=== PATIENT | male | born 1950 | race African-American/Black ===

== ENCOUNTER 2017-05-04 10:35 | Observation (INO) | payer MEDICARE ==
[2017-05-04 11:25] LABS: #Eosinphils 0.3 thou/uL (0.0-0.7); #Lymphocytes 0.5 thou/uL (1.20-3.40); #Monocytes 0.5 thou/uL (0.11-0.59); #Neutrophils 2.7 thou/uL (1.40-6.50); %Basophils 0.6 % (0.0-1.0); %Eosinophils 7.2 % (0.0-10.0); %Lymphocytes 13.2 % (21.0-51.0); %Monocytes 12.4 % (0.0-10.0); Hematocrit 34.7 % (42.0-52.0); Mean Platelet Volume 9.2 fL (7.4-10.4); Red Blood Cell (RBC) Count 3.92 mill/uL (4.70-6.10)
[2017-05-04 11:46] LABS: ALT (SGPT) 22 U/L (8-55); AST (SGOT) 33 U/L (5-34); Alkaline Phosphatase 126 U/L (40-150); Anion Gap 11 mmol/L (10-20); BUN (Urea Nitrogen) 59 mg/dL (8.4-25.7); Bilirubin, Total 0.9 mg/dL (0.2-1.2); CK (CPK) 299 U/L (30-200); Calc. Creatinine Clearance 0 mL/min (70-130); Carbon Dioxide 33 mmol/L (23-31); Chloride 97 mmol/L (98-107); Estimated GFR-MDRD 24; Globulin 4.8 g/dL (2.4-3.5); Lipase 37 U/L (8-78); Protein, Total 8.2 g/dL (5.8-8.1)
[2017-05-04 11:50] LABS: Troponin I 0.034 ng/mL (< 0.028)
[2017-05-04 11:58] LABS: Mode NC; Oxyhemoglobin 94.8 % (94.0-97.0); Sodium 141 mmol/L (135-148); Vent NO
--- NOTE | 2017-05-04 12:18 | RAD ---
CHEST 1 VIEW: Date: 05/04/17 COMPARISON: 04/09/17 and 04/11/17. HISTORY: Dyspnea. FINDINGS: Left-sided transvenous defibrillator is unchanged. There is atherosclerosis of the aorta. Heart is e nlarged. Pulmonary vessels are within normal limits. Lungs are hyperinflated. Chronic changes in the right lung base. Stable blunting of the right costophrenic angle. There is adequate aeration of the upper lungs. No pneumothorax or osseous abnormalities. IMPRESSION: No significant interval change. POS: [facility]
[2017-05-04 14:56] LABS: Troponin I 0.042 ng/mL (< 0.028)
[2017-05-04] MEDS ORDERED: HYDROcodone/Acetaminophen 5/325 mg Tablet PO PRN (15:04)
[2017-05-04] MEDS ORDERED: Eucerin (Mineral Oil/Petrolatum,White) 30 gm Jar TOP PRN (15:04)
[2017-05-04] MEDS ORDERED: Zolpidem Tartrate 5 MG TAB PO PRN (15:04)
[2017-05-04] MEDS ORDERED: Nitroglycerin 0.4 MG TAB (25 Tab Bottle) SL PRN (15:04)
[2017-05-04] MEDS ORDERED: Senokot 8.6 MG TAB PO PRN (15:04)
[2017-05-04] MEDS ORDERED: Ondansetron ODT 4 MG TAB PO PRN (15:04)
[2017-05-04] MEDS ORDERED: Loratadine 10 MG TAB PO PRN (15:04)
[2017-05-04] MEDS ORDERED: Loperamide HCl 2 MG CAP PO PRN (15:04)
[2017-05-04] MEDS ORDERED: Artificial Tears 18 DROP/0.9 ML EA EYE PRN (15:04)
[2017-05-04] MEDS ORDERED: Acetaminophen 325 MG TAB PO PRN (15:04)
[2017-05-04] MEDS ORDERED: Mag-Al 1200 mg/1200 mg/30 ML UDCUP PO PRN (15:04)
[2017-05-04] MEDS ORDERED: Ondansetron HCl/PF 4 MG/2 ML Vial IVP PRN (15:04)
[2017-05-04] MEDS ORDERED: Diabetic Tussin 200 MG/10 ML UDCUP PO PRN (15:04)
[2017-05-04] MEDS ORDERED: Milk Of Magnesia 30 ML UDCUP PO PRN (15:04)
[2017-05-04] MEDS ORDERED: Sodium Chloride 0.65% Nasal 44 ML BOT EA NARE PRN (15:04)
[2017-05-04 15:16] VITALS: BMI 26.6
--- NOTE | 2017-05-04 15:24 | HP ---
PRIMARY CARE PHYSICIAN: Dr. Cecilia Nguyen. REASON FOR ADMISSION: Dyspnea. HISTORY OF PRESENT ILLNESS: A 66-year-old -[place] male, who has cardiomyopathy with EF 20% -25%. Recently, he had upgradation of AICD, and he was admitted for generator change. He also has underlying chronic kidney failure, stage 4. The patient came to the emergency room because Dr. Nguyen sent him to ER. Today, he had regular vis it with Dr. Nguyen. The patient has chronic shortness of breath, but he feels a little bit more melody n usual shortness of breath. He reports that after walking 25-30 steps he gets out of breath and he has to rest to move forward. He also has chronic bilateral lower extremity edema. He denies any c hest pain. He denies any palpitations, dizziness, or syncope. He does have chronic orthopnea, but he denies any PND. He denies any cough. He denies any fever or chills. Today, he is evaluated in the emergency room. His chest x-ray is pretty much stable. His renal fun ction has gotten worse from previous. His BNP is chronically elevated and his troponin is also spring maker nically elevated. At this point, we are admitting this patient in the hospital for treatment and ev aluation. REVIEW OF SYSTEMS: The following complete review of systems was negative, unless otherwise mentione d in the HPI or below: Constitutional: Weight loss or gain, ability to conduct usual activities. Skin: Rash, itching. Eyes: Double vision, pain. ENT/Mouth: Nose bleeding, neck stiffness, pain, tenderness. Cardiovascular: Palpitations, dyspnea on exertion, orthopnea. Respiratory: Shortnes s of breath, wheezing, cough, hemoptysis, fever or night sweats. Gastrointestinal: Poor appetite, abdominal pain, heartburn, nausea, vomiting, constipation, or diarrhea. Genitourinary: Urgency, fr equency, dysuria, nocturia. Musculoskeletal: Pain, swelling. Neurologic/Psychiatric: Anxiety, de pression. Allergy/Immunologic: Skin rash, bleeding tendency. Please see my HPI for pertinent posi tives and negatives. All other review of system reviewed and negative except as mentioned in the HP I. PAST MEDICAL HISTORY: Hypertension; chronic systolic heart failure with ejection fraction based on echocardiography in 11/2016 of 25%-30%; chronic kidney disease, stage 4; chronic respiratory failure , on home oxygen therapy; history of infrarenal abdominal aortic aneurysm; dyslipidemia. PAST SURGICAL HISTORY: AICD placement and subsequently generator replaced. The patient also had I and D required for abscess on the neck, hernia repair x2. PAST PSYCHIATRIC HISTORY: Reviewed and negative. ALLERGIES: The patient is not tolerating any FISH-CONTAINING PRODUCTS WELL SEAFOOD. FAMILY HISTORY: Father from heart condition. He also had chronic kidney disease and hypertens ion. Heart disease runs among other several family members. SOCIAL HISTORY: Patient is a former smoker. He quit smoking more than 20 years ago. He used to sm katharina about 1 pack per day. He denies any alcohol or other illicit drug abuse. Currently lives at [facility] with his son. 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 CURRENT HOME MEDICATIONS: Calcitriol 0.5 mcg p.o. daily, Coreg 12.5 mg p.o. b.i.d., Lasix 40 mg p.o . daily, DuoNeb p.r.n., Imdur 30 mg p.o. daily, omeprazole 40 mg p.o. daily. EMERGENCY ROOM COURSE: Reviewed. PHYSICAL EXAMINATION: VITAL SIGNS: Currently, blood pressure 125/80, pulse 79, respiratory rate 18, temperature 98.2, sat uration 97% on 2 liter oxygen, weight 83.4 kilograms. GENERAL: Patient is currently alert, awake, chronically ill, no obvious acute distress. HEENT: Head: Normocephalic, atraumatic. Eyes: Pupils round, reactive to light. Extraocular musc les intact. ENT: Oropharynx within normal limits. Moist mucous membranes. No oral lesions. No p haryngeal erythema, no exudate. NECK: Elevated JVD, no thyromegaly, no carotid bruit. Range of motion is normal. LUNGS: Clear to auscultation without any significant rales or rhonchi or wheeze. CARDIOVASCULAR: S1, S2 regular. Unable to elicit any murmur. CHEST WALL: AICD in place without any tenderness. ABDOMEN: Obesity present. Bowel sounds present, nontender, nondistended. No organomegaly, no mass , no suprapubic tenderness. BACK: Unremarkable, no CVA tenderness. EXTREMITIES: Upper extremity, passive movement of all joints are normal. Lower extremity, patient does have bilateral chronic skin changes with chronic edema. Good distal pulsation. NEUROLOGIC: Nonfocal examination. SKIN: No skin rash. HEMATOLOGICAL SYSTEM: No lymphadenopathy. PSYCHIATRIC: Normal affect. SIGNIFICANT LABS: EKG, based on my review, normal sinus rhythm, nonspecific ST-T changes, low volta ge QRS complex. Chest x-ray, no acute cardiopulmonary process. CBC: WBC 4.0, hemoglobin 11.0, rachelle telets 90. ABG: pH 7.34, CO2 of 59.5, bicarb 31.7, O2 92.6, saturation 97.3. BMP: Sodium 137, po tassium 3.9, chloride 97, carbon dioxide 33, BUN 59, creatinine 3.16, glucose 85, calcium 9.0. LFT: AST 33, ALT 22, alkaline phosphatase 126, albumin 3.4, lipase 37, CK 299, CK-MB 5.1, troponin I 0. 034. BNP 7079.8, lipase 37. ASSESSMENT AND PLAN: 1. Dyspnea, multifactorial etiology. The patient does have underlying chronic systolic heart failu re as well as diastolic heart failure with ejection fraction 25%-30%. He also has underlying renal insufficiency and anemia. He also has physical deconditioning, all contributing to his increasing d yspnea. 2. Acute on chronic systolic and diastolic congestive heart failure exacerbation. At this point, w e will keep this patient under observation status and we will try Lasix 60 mg IV b.i.d. and Zaroxoly n 5 mg p.o. daily. We will see his response to diuretic therapy. He has advanced renal insufficien cy and that is why we will monitor renal function, input-output chart, and daily weight. If this pa tient does not respond with a high dose of Lasix therapy, then this patient will need eventually ashlie lysis. This patient is also pretty much adamant about going for dialysis route. At this point, the patient is up to his baseline, but will try to give him more Lasix to make him more euvolemic. 3. Hypertension. Patient is on Coreg. We will continue Coreg 3.125 mg p.o. b.i.d. At this point, patient is not on CLEO inhibitor and ARB in view of systolic heart failure, because of advanced yoni l failure. 4. Chronic kidney disease, stage 4. The patient's creatinine is slightly increased from the previo us, maybe cardiorenal syndrome. We will continue with IV Lasix and we will repeat renal function te st. I explained to patient and family member that with diuretic therapy it is expected that his cre atinine may go up. Patient is following Dr. Epps as an outpatient basis and the patient and family osvaldo osorio does not want to go for any future dialysis as well. 5. Chronic respiratory failure, on home oxygen therapy. We will [facility] oxygen [facility]. 6. Gastroesophageal reflux disease. We will continue Protonix 40 mg p.o. daily. 7. Chronic obstructive pulmonary disease. We will continue DuoNeb therapy q.6 hourly p.r.n. 8. Anemia of chronic disease and renal disease. We will continue ferrous sulfate 325 mg p.o. daily , Nephro-Ethan one tablet p.o. daily. 9. Thrombocytopenia. We will avoid any heparin products because of low platelet count. 10. Leukopenia. We will continue with folic acid and vitamin B12 therapy. We will check B12 and f olate level to rule out any vitamin deficiency. 11. Deep venous thrombosis prophylaxis, sequential compression device boots. 12. Gastrointestinal prophylaxis, Protonix 40 mg p.o. daily. CODE STATUS: The patient is full code. The patient's son is surrogate decision maker. Disposition plan based on clinical course. We are expecting patient stay in the hospital 24-48 hour s. The plan of care discussed with the patient and his son at bedside in the emergency room.
[2017-05-04 19:10] LABS: Troponin I 0.034 ng/mL (< 0.028)
[2017-05-04] MEDS: Carvedilol 3.125 MG TAB PO SCH (20:50)
[2017-05-04 21:22] LABS: Troponin I 0.034 ng/mL (< 0.028)
[2017-05-04] MEDS ORDERED: Furosemide 100 MG/10 ML VIAL SLOW IVP SCH (22:00)
[2017-05-05 04:45] LABS: ALT (SGPT) 19 U/L (8-55); AST (SGOT) 27 U/L (5-34); Alkaline Phosphatase 98 U/L (40-150); Anion Gap 12 mmol/L (10-20); BUN (Urea Nitrogen) 56 mg/dL (8.4-25.7); Bilirubin, Total 0.8 mg/dL (0.2-1.2); Calc. Creatinine Clearance 28 mL/min (70-130); Carbon Dioxide 34 mmol/L (23-31); Chloride 98 mmol/L (98-107); Estimated GFR-MDRD 25; Globulin 4.7 g/dL (2.4-3.5); Uric Acid 12.4 mg/dL (3.5-7.2)
[2017-05-05 04:53] LABS: #Eosinphils 0.3 thou/uL (0.0-0.7); #Lymphocytes 0.6 thou/uL (1.20-3.40); #Monocytes 0.5 thou/uL (0.11-0.59); #Neutrophils 2.5 thou/uL (1.40-6.50); %Basophils 0.8 % (0.0-1.0); %Eosinophils 7.4 % (0.0-10.0); %Lymphocytes 14.7 % (21.0-51.0); %Monocytes 13.7 % (0.0-10.0); Mean Platelet Volume 9.3 fL (7.4-10.4); Red Blood Cell (RBC) Count 4.17 mill/uL (4.70-6.10); White Blood Cell (WBC) Count 3.9 thou/uL (4.8-10.8)
[2017-05-05] MEDS ORDERED: Furosemide 100 MG/10 ML VIAL SLOW IVP SCH (06:00)
[2017-05-05] MEDS ORDERED: Ferrous Sulfate 325 MG TAB PO SCH (08:00)
[2017-05-05] MEDS: Carvedilol 3.125 MG TAB PO SCH (08:24)
[2017-05-05] MEDS: Furosemide 100 MG/10 ML VIAL SLOW IVP SCH ×2 (08:25→13:40)
[2017-05-05] MEDS ORDERED: Metolazone 5 MG TAB PO SCH (08:30)
[2017-05-05] MEDS ORDERED: Folic Acid/Vit B Comp W-C PO SCH (09:00)
[2017-05-05] MEDS ORDERED: Polyethylene Glycol 3350 17 GM Packet PO SCH (09:00)
--- NOTE | 2017-05-05 11:22 | DIS ---
DATE OF ADMISSION: 05/04/2017 DATE OF DISCHARGE: 05/05/2017 CONDITION AT THE TIME OF DISCHARGE: Stable and improved. DISCHARGE DIAGNOSES: 1. Dyspnea secondary to acute congestive heart failure exacerbation and deconditioning. 2. Hypertension. 3. Chronic kidney disease. 4. Chronic respiratory failure on home oxygen. 5. Gastroesophageal reflux disease. 6. Chronic obstructive pulmonary disease. 7. Anemia of chronic kidney disease. 8. Chronic thrombocytopenia. DISCHARGE MEDICATIONS: Resume all the home medications as follows, DuoNebs as needed, Lasix 40 mg. The patient says that he takes twice a day. I have instructed him to resume his home dosages; Core g 12.5 mg p.o. b.i.d., calcitriol 0.5 mcg daily, Dulcolax as needed, docusate as needed, Silvadene c ream as needed, MiraLax as needed, omeprazole 40 mg daily, Claritin as needed, and isosorbide mononi trate 30 mg daily. He has not prescribed CLEO inhibitors or ARB due to renal failure. CONSULTATIONS INHOUSE: None. PROCEDURES IN THE HOSPITAL: Include chest x-ray upon presentation, which did not show any significa nt interval change from the last month on 04/11/2011. Cardiomegaly once again noticed. ADMISSION HISTORY: Mr. Tristan López is a pleasant 66-year-old male with past medical history of c hronic congestive heart failure, likely mostly systolic with low EF of 20%-25%, status post AICD and chronic kidney disease, who presented to the emergency room with complaints of dyspnea. He was sen t in by his primary care physician, Dr. Nguyen. He presented initially to his PCP's clinic with dif ficulty with breath and significant dyspnea on exertion and worsening lower extremity edema. Upon presentation to the ER, his chest x-ray was pretty much stable. His BNP was found to be chroni guillermo elevated to more than 10,000 on chronically elevated troponin. He was admitted for diuresis a nd observation status. Please see admission history and physical for further details. He is otherw ise hemodynamically stable. HOSPITAL COURSE: The patient was diuresed with good response. He was diuresed with high dose of La six along with Zaroxolyn and this morning when I am evaluating him, his symptoms have resolved and h e is back on his baseline for his breathing. He uses 3 liters of oxygen at home and currently he is on 2.5 liters in the hospital with stable hemodynamics. His vital signs are stable. He is eager t o go home and will be discharged shortly after the next dose of IV Lasix. He already [facility] wit [facility] and I have encouraged to keep him his next appointment. He will also follow up with his primary care physician, Dr. Nguyen next week. At this time, home medications are review ed and reconciled. His creatinine has improved this morning and it is back to his baseline of 3.0. Cardiac enzymes were trended and remained stable to 0.034, which seems to be his baseline. Vitamin B12, folic acid levels were checked which were normal. At this time, he has achieved euvolemia and can be discharged home. He was seen and examined prior to discharge. PHYSICAL EXAMINATION: VITAL SIGNS: Temperature 97.9, pulse of 66, respirations 20, saturating 100% on 1-1/2 liters oxygen , and blood pressure 118/77. GENERAL: He is sitting up in bed, awake, alert, oriented x3, no acute distress. Very friendly. CHEST: Clear to auscultation without any wheezing, rales or rhonchi. Rate and rhythm is regular wi thout any murmur, rubs or gallops. ABDOMEN: Soft, nontender, nondistended, positive bowel sounds. EXTREMITIES: Showed just chronic and nonpitting edema. LABORATORY DATA: CBC shows WBCs at 3.9, which was 4 upon presentation, hemoglobin 11.2, platelet co unt of 90, which was 90 upon presentation. Serum chemistry shows BUN of 56 with creatinine of 3, wh ich was 59 and 3.16 respectively. CK-MB normal. Cardiac enzymes 0.034 on presentation and 0.34 on discharge as well. DISCHARGE FOLLOWUP: With primary care physician and [facility]. PRIMARY CARE PHYSICIAN: Cecilia Nguyen M.D.
[2017-05-05 11:30] VITALS: BP 113/75; TEMP 97.7
== END 2017-05-05 14:50 | disposition home or self-care (01) ==
LOC: ERS 10:35 → 2SW 13:55
PROVIDERS: ADMIT Internal Medicine; ATTEND Internal Medicine
DX: I13.0 Hypertensive heart and chronic kidney disease with heart failure and stage 1 through stage 4 chronic kidney disease, or unspecified chronic kidney disease (principal); I50.23 Acute on chronic systolic (congestive) heart failure; N18.9 Chronic kidney disease, unspecified; D63.1 Anemia in chronic kidney disease; J96.10 Chronic respiratory failure, unspecified whether with hypoxia or hypercapnia; K21.9 Gastro-esophageal reflux disease without esophagitis; J44.9 Chronic obstructive pulmonary disease, unspecified; Z91.013 Allergy to seafood; Z91.018 Allergy to other foods; Z79.899 Other long term (current) drug therapy; Z87.891 Personal history of nicotine dependence
CPT/HCPCS: 71010; 80053 ×2; 82550; 82553 ×2; 82607; 82746; 82805; 83690; 83880; 84484 ×2; 84550; 85025 ×2; 93005; 94760; 96374; 96376; 99285; G0378 ×2; 36415; J1940

== ENCOUNTER 2017-05-15 06:47 | Inpatient (IN) | payer MEDICARE ==
[2017-05-15] MEDS ORDERED: methylPREDNISolone Sod Succ/PF 125 MG/2 ML VIAL ONE (07:51)
[2017-05-15 07:58] LABS: #Eosinphils 0.1 thou/uL (0.0-0.7); #Lymphocytes 0.6 thou/uL (1.20-3.40); #Monocytes 0.5 thou/uL (0.11-0.59); #Neutrophils 3.3 thou/uL (1.40-6.50); %Basophils 0.7 % (0.0-1.0); %Eosinophils 2.4 % (0.0-10.0); %Lymphocytes 12.2 % (21.0-51.0); %Monocytes 10.9 % (0.0-10.0); Hematocrit 37.7 % (42.0-52.0); Mean Platelet Volume 10.6 fL (7.4-10.4); Red Blood Cell (RBC) Count 4.23 mill/uL (4.70-6.10); White Blood Cell (WBC) Count 4.5 thou/uL (4.8-10.8)
[2017-05-15 08:02] LABS: Anion Gap 14 mmol/L (10-20); BUN (Urea Nitrogen) 74 mg/dL (8.4-25.7); Calc. Creatinine Clearance 0 mL/min (70-130); Calcium 9.1 mg/dL (7.8-10.44); Carbon Dioxide 32 mmol/L (23-31); Chloride 96 mmol/L (98-107); Estimated GFR-MDRD 23
[2017-05-15 08:03] LABS: Lactic Acid - Sepsis 1.1 mmol/L (0.5-2.2)
[2017-05-15 08:09] LABS: Troponin I 0.048 ng/mL (< 0.028)
--- NOTE | 2017-05-15 08:19 | CT ---
CT HEAD WITHOUT CONTRAST: Technique: Multiple axial tomograms were obtained through the head without IV enhancement. History: Repeated falls with head injury. FINDINGS: The ventricles have normal size and position. There is no evidence of intracranial hemorrhage. No ma ss, edema, or infarct identified. Paranasal sinuses and mastoids are well aerated. No evidence of fr acture. IMPRESSION: No acute abnormalities identified. POS: [facility]
--- NOTE | 2017-05-15 08:20 | CT ---
CT CERVICAL SPINE NONCONTRAST: HISTORY: 66-year-old male status post-acute cervical trauma from fall. FINDINGS: There are no jumped or perched facets. There is no evidence of acute fracture. The vertebral body heights are maintained. There is no prevertebral soft tissue swelling. IMPRESSION: No evidence of acute fracture or acute traumatic subluxation. latoya POS: [facility]
[2017-05-15 08:49] LABS: Oxyhemoglobin 95.6 % (94.0-97.0); Sodium 139 mmol/L (135-148)
[2017-05-15 08:57] LABS: Mode NC; Modified Allen's Test POSITIVE; Vent NO
--- NOTE | 2017-05-15 09:30 | RAD ---
FRONTAL VIEW CHEST: Date: 05/15/17 COMPARISON: 05/04/17. INDICATION: Dyspnea. FINDINGS: Chest is stable appearing with enlargement of the cardiac silhouette and persistent pleural based de nsity of the inferior right hemithorax. There is interstitial prominence bilaterally. Left-sided car diac pacing device remains. IMPRESSION: Stable chest. POS: [facility]
[2017-05-15] MEDS ORDERED: Furosemide 20 MG/2 ML VIAL ONE (09:36)
[2017-05-15] MEDS ORDERED: Furosemide 40 MG/4 ML VIAL ONE (09:36)
[2017-05-15 10:15] LABS: Bilirubin Negative (Negative); Blood, Urine Large (Negative); Glucose, Urine (Dipstick) Negative (Negative); Ketone, Urine Negative (Negative); Nitrite Negative (Negative); Protein, Urine (Dipstick) Negative (Neg-Trace)
[2017-05-15 10:19] LABS: Bacteria/HPF None Seen HPF (None Seen); Hyaline Casts/LPF 7-10 HYALINE CAST LPF (0-3 Hyaline); RBC/HPF GREATER THAN 50-TNTC HPF (0-3); Squamous Epithelial 0-3 HPF (0-3)
[2017-05-15] MEDS ORDERED: Sodium Chloride 0.65% Nasal 44 ML BOT EA NARE PRN (10:37)
[2017-05-15] MEDS ORDERED: Milk Of Magnesia 30 ML UDCUP PO PRN (10:37)
[2017-05-15] MEDS ORDERED: Diabetic Tussin 200 MG/10 ML UDCUP PO PRN (10:37)
[2017-05-15] MEDS ORDERED: Ondansetron HCl/PF 4 MG/2 ML Vial IVP PRN (10:37)
[2017-05-15] MEDS ORDERED: Acetaminophen 325 MG TAB PO PRN (10:37)
[2017-05-15] MEDS ORDERED: Mag-Al 1200 mg/1200 mg/30 ML UDCUP PO PRN (10:37)
[2017-05-15] MEDS ORDERED: Loperamide HCl 2 MG CAP PO PRN (10:37)
[2017-05-15] MEDS ORDERED: Eucerin (Mineral Oil/Petrolatum,White) 30 gm Jar TOP PRN (10:37)
[2017-05-15] MEDS ORDERED: Ondansetron ODT 4 MG TAB PO PRN (10:37)
[2017-05-15] MEDS ORDERED: Artificial Tears 18 DROP/0.9 ML EA EYE PRN (10:37)
[2017-05-15] MEDS ORDERED: Senokot 8.6 MG TAB PO PRN (10:37)
[2017-05-15] MEDS ORDERED: Nitroglycerin 0.4 MG TAB (25 Tab Bottle) SL PRN (10:37)
[2017-05-15 11:07] LABS: Troponin I 0.027 ng/mL (< 0.028)
--- NOTE | 2017-05-15 12:01 | HP ---
PRIMARY CARE PHYSICIAN: Cecilia Nguyen M.D. REASON FOR ADMISSION: Generalized weakness, acute on chronic systolic and diastolic congestive hear t failure exacerbation, and frequent falls. HISTORY OF PRESENT ILLNESS: A 66-year-old male who has advanced cardiomyopathy wit h chronic systolic and diastolic heart failure. Based on most recent echocardiography, he has EF of 20%-25%. He had recently dual-chamber ICD generator exchanged. He was also recently admitted for CHF exacerbation in our hospital on 05/04/2017. He was discharged home on 05/05/2017. Family member reports that for the last 3 days, the patient had multiple falls. He is feeling more short of breath. He is feeling more confused. He is feeling more weak. He is feeling short of radha ath; even with little exertion he gets out of breath. The patient's family member also noticed incr easing swelling over his both lower extremities. This patient is not able to provide any classic hi story because he is slightly confused and weak. Today in emergency room, patient had CT brain which was negative for any acute intracranial process. CT cervical spine was negative for any fracture or dislocation. His chest x-ray was also stable. Routine blood tests showed pancytopenia, CO2 retention and elevated troponins with elevated BNP. I n the emergency room, they tried to use BiPAP, but this patient was feeling more suffocated with melody t and he did not tolerated BiPAP and that is why BiPAP therapy was not given. Patient also had Fole y catheter trial in the emergency room, but nurse was reporting that she was feeling resistance and that is why she did not put more pressure and after that he had little bit bloody urine. REVIEW OF SYSTEMS: Review of system is very limited and not reliable because of the patient's leigh ann rgy. The following complete review of systems was negative, unless otherwise mentioned in the HPI o r below: Constitutional: Weight loss or gain, ability to conduct usual activities. Skin: Rash, itching. Eyes: Double vision, pain. ENT/Mouth: Nose bleeding, neck stiffness, pain, tenderness. Cardiovascular: Palpitations, dyspnea on exertion, orthopnea. Respiratory: Shortness of breath, wheezing, cough, hemoptysis, fever or night sweats. Gastrointestinal: Poor appetite, abdominal pain, heartburn, nausea, vomiting, constipation, or diar cyndie. Genitourinary: Urgency, frequency, dysuria, nocturia. Musculoskeletal: Pain, swelling. Neurologic/Psychiatric: Anxiety, depression. Allergy/Immunologic: Skin rash, bleeding tendency. Please see my HPI for pertinent positive and negative. All other review of systems reviewed and neg ative except as mentioned in the HPI. PAST MEDICAL HISTORY: Chronic systolic and diastolic heart failure with EF 25%-30%, chronic kidney disease stage 4, chronic respiratory failure on home oxygen 3-4 liters, history of infrarenal abdomi nal aortic aneurysm, hypertension, dyslipidemia, peripheral vascular disease, and anemia of renal di sease. PAST SURGICAL HISTORY: AICD placement and subsequently generator replaced in 03/2017. The patient required incision and drainage for abscess in the neck. He required hernia repair x2. PAST PSYCHIATRIC HISTORY: Reviewed and negative. ALLERGIES: Patient is allergic to FISH CONTAINING PRODUCTS as well as any kind of SEAFOOD. FAMILY HISTORY: Father from heart condition. He also had chronic kidney disease and hypertens ion. Hypertension and heart disease runs among several family members. SOCIAL HISTORY: Patient is a former smoker. He quit smoking more than 20 years ago. He used to sm katharina about 1 pack per day. He denies any alcohol or illicit drug abuse. Currently, he lives with hi s son. 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 CURRENT HOME MEDICATIONS: The patient was discharged home on following medications. He does not gregory ve any medication with him to confirm. Dulcolax 5 mg p.o. daily p.r.n., calcitriol 0.5 mcg p.o. delonte ly, Coreg 12.5 mg p.o. b.i.d., Colace 100 mg p.o. daily, Lasix 40 mg p.o. b.i.d., DuoNeb q.6 hourly, Imdur 30 mg p.o. daily, Claritin 10 mg p.o. daily p.r.n., omeprazole 40 mg p.o. daily, MiraLax 17 g ted p.o. daily p.r.n., Silvadene cream topical application as needed. EMERGENCY ROOM COURSE: In the emergency room, the patient is given Lasix 60 mg, DuoNeb therapy and Solu-Medrol 125 mg. PHYSICAL EXAMINATION: GENERAL: Patient is currently lethargic, arousable, follows simple command, slightly confused, no o bvious acute distress other than weakness generalized. HEAD: Normocephalic, atraumatic. EYES: Pupils round and reactive to light. Extraocular muscle intact. Puffiness of eyelid noted. ENT: Oropharynx within normal limits, pale mucous membranes. No pharyngeal erythema, no exudate. NECK: Elevated JVD, no thyromegaly, no carotid bruits. Supple. Range of motion is normal. No men ingeal signs of irritation. LUNGS: End expiratory wheezing heard. No obvious rales noted. No accessory muscles of respiration in use. CARDIAC: S1 and S2 regular. No murmur elicited. No gallop, no rub. ABDOMEN: Soft, bowel sounds present, nontender, nondistended. No organomegaly, no mass, no suprapu bic tenderness, no Boudreaux sign. BACK: Examination unremarkable. No CVA tenderness. EXTREMITIES: Upper extremity passive movements of all joints are normal. Lower extremity bilateral +3 pitting edema noted. Chronic skin changes noted. Chronic venous stasis noted. NEUROLOGIC: Patient is lethargic, but he follows commands. He moves all 4 limbs. He does not have any focal neurological deficit. His speech is normal. SKIN: No skin rash other than venous stasis changes in both lower extremities. PSYCHIATRIC: Normal affect. IMAGING AND SIGNIFICANT LABORATORY DATA: 1. EKG showing pacemaker rhythm, low voltage QRS complex. CT brain based on my review, no acute in tracranial process. CT cervical spine negative for any fracture or dislocation. Chest x-ray showin g cardiomegaly without any significant change. 2. CBC: WBC 4.5, hemoglobin 11.6, platelets 78. ABG: pH 7.30, CO2 68.3, bicarbonate 32.9, O2 121 .8. 3. BMP: Sodium 137, potassium 5.0, chloride 96, carbon dioxide 32, BUN 74, creatinine 3.28, glucos e 88, calcium 9.1, and lactic acid 1.1. 4. CK-MB 10.5, troponin I 0.048. BNP 8,873. Urinalysis, traumatic hematuria noted. ASSESSMENT AND PLAN/IMPRESSION: 1. Generalized weakness. This patient has multifactorial etiology of generalized weakness includin g his advanced renal insufficiency, advanced cardiomyopathy, and multiple antihypertensive medicatio ns. We will check orthostatic vitals while in hospital to rule out any orthostatic hypotension. We will monitor on telemetry floor. Patient will need PT, OT, and intermediate home placement upon discharge. 2. Acute on chronic systolic and diastolic congestive heart failure exacerbation. This patient has difficulty problem. He has renal insufficiency. He is not significantly making urine output and h e has advanced cardiomyopathy. At this point, Palliative Care will be consulted for goal of care, t his patient may need hemodialysis. Will consult Dr. Epps. Will also consult doctor front office help for Card iology to assist with management of this patient's problem. We will try to make him diuresis with L asix 40 mg IV b.i.d. and Zaroxolyn 5 mg p.o. daily. We will monitor input and output chart, daily w eight and will restrict fluid restriction about 1200 mL per day. At this point, the patient's blood pressure is marginal and that is why we will avoid any other antihypertensive medication including beta fani. The patient is not on CLEO inhibitor or ARB therapy because of renal failure. 3. Chronic obstructive pulmonary disease, stage 4. Nephrology consulted. We will continue ferrous sulfate 325 mg p.o. daily, Nephro-Ethan 1 tablet p.o. daily, calcitriol 0.25 mcg p.o. daily. This p atient is at the edge of need of hemodialysis. Dr. Epps will decide about that. 4. Gastroesophageal reflux disease. We will continue Protonix 40 mg p.o. daily. 5. Altered mental status. This patient has CO2 retention. This patient is using high flow oxygen at home. He did not tolerate bilevel positive airway pressure therapy. At this point, we will redu ce his oxygen flow to 2 liters. Because with 2 liters, he is maintaining saturation very well. We will watch for his clinical status. 6. Elevated troponin. We will do 2 more sets of cardiac enzymes to rule out acute coronary syndrom e, likely related with demand ischemia and renal failure. 7. Pancytopenia. We will continue with Nephro-Ethan tablet daily and we will avoid heparin products because of low platelet count. 8. Respiratory acidosis with metabolic compensation. Looking at his CO2 in past, he has chronic CO 2 retention and he has compensation at this point, but we will try to reduce his oxygen flow to prev ent problem getting worse. 9. Chronic obstructive pulmonary disease. We will continue DuoNeb therapy q.6 hourly along with Du alok two puffs inhalation b.i.d. Patient already received steroid in the emergency room. 10. Frequent fall. Patient will need PT, OT, and possible replacement. Disposition plan based on clinical course. We are expecting patient's stay in hospital more than 2 midnights. Plan of care discussed with the patient and family member.
[2017-05-15 13:21] VITALS: BMI 26.4
[2017-05-15] MEDS ORDERED: Furosemide 40 MG/4 ML VIAL SLOW IVP SCH (14:00)
[2017-05-15 14:20] LABS: Troponin I 0.029 ng/mL (< 0.028)
[2017-05-15] MEDS: Mometasone/Formoterol 120 PUFF INHALER INH SCH (19:03)
--- NOTE | 2017-05-15 20:27 | CON ---
DATE OF CONSULTATION: 05/15/2017 HISTORY OF PRESENT ILLNESS: The patient is a 66-year-old gentleman who presents for evaluation of s yncope. The patient has a history of a cardiomyopathy. He also has chronic renal failure. The gera lauren has been admitted on several occasions with congestive heart failure. The patient is on chroni c beta fani therapy. The patient has also previously had placement of automatic implantable card iac defibrillator. The patient was in usual state of health when recently is being noted to have in creasing edema. He has also had multiple falls. He states that whenever he gets up, he will sudden ly lose fall and lose consciousness. This occurred on several occasions. He reports having dyspnea on exertion. He denies having any PND or orthopnea. PAST MEDICAL HISTORY: Significant for: 1. Cardiomyopathy. 2. Chronic renal failure. 3. Hypertension. 4. Dyslipidemia. 5. History of aneurysm. PAST SURGICAL HISTORY: Hernia surgery. ALLERGIES: He is allergic to IODINE. FAMILY HISTORY: Strong family history of coronary artery disease. MEDICATIONS ON ADMISSION: He takes Coreg 12.5 b.i.d., Lasix 40 b.i.d., Imdur 30 q.a.m., and omepraz ole 40 daily. SOCIAL HISTORY: Former smoker. REVIEW OF SYSTEMS: Ten-point system otherwise unremarkable. No history of easy bruising or bleedin g, bright red blood per rectum, hematuria, abdominal discomfort. PHYSICAL EXAMINATION: GENERAL: Thin gentleman in no acute distress. VITAL SIGNS: Blood pressure is 119/74 and heart rate was 60. HEENT: He had poor dentition. NECK: Showed jugular venous distention to the jaw. LUNGS: Few coarse breath sounds bilateral. HEART: Regular rate and rhythm, normal S1, S2. There were no murmurs. ABDOMEN: Mildly distended. EXTREMITIES: Showed moderate bilateral edema. SKIN: Warm and dry. NEUROLOGIC: Nonfocal. VASCULAR: Radial pulses are 2+. LABORATORY DATA: White blood cell count is 4.5, hemoglobin 11.6, hematocrit 37.7, and platelets wer e 78. His sodium is 137, potassium 5.0, chloride 96, bicarbonate 32, BUN 74, and creatinine 3.28. Troponin was 0.048 with an MB of 10.45. IMPRESSION: 1. Recurrent syncope secondary to orthostasis. 2. Cardiomyopathy. 3. Chronic renal failure. 4. Hypertension. 5. History of automated implantable cardioverter defibrillator placement. This unfortunate gentleman has had several falls. He has orthostatic hypotension. His medications will need to be adjusted. He needs to be on lower doses of his congestive heart failure medications . He needs to avoid being over diuresis. He needs to be very careful when getting up and avoid deh ydration. The patient's prognosis is guarded. We will follow this patient with you through his hos pitalization.
[2017-05-16] MEDS: Mometasone/Formoterol 120 PUFF INHALER INH SCH ×3 (06:53→19:27)
[2017-05-16] MEDS ORDERED: Metolazone 5 MG TAB PO SCH (08:30)
[2017-05-16] MEDS: Calcitriol 0.25 MCG CAP PO SCH (09:57)
[2017-05-16] MEDS: Ferrous Sulfate 325 MG TAB PO SCH (09:57)
[2017-05-16] MEDS: Folic Acid/Vit B Comp W-C PO SCH (09:57)
--- NOTE | 2017-05-16 10:42 | CON ---
DATE OF CONSULTATION: 05/16/2017 HISTORY OF PRESENT ILLNESS: Mr. López is a 66-year-old black male with chronic renal failure seco ndary to presumed cardiorenal syndrome and admitted for near syncopal episode. Initial evaluation s howed a chest x-ray with increased lung markings. He was empirically treated with IV Lasix. Howeve r, renal function is noted to worsen. Currently, IV diuretics have been placed on hold. A cardiac echo was redone again today. We are being consulted for his chronic renal failure/acute kidney inju ry. The patient tells me he is feeling better, shortness of breath is much improved. REVIEW OF SYSTEMS: No chest pain, no shortness of breath. Positive for near syncopal episode, no p roductive cough, no fever or chills, no abdominal pain. Appetite is excellent. Energy level is yovana r. Occasional joint pains. No gross hematuria. No dysuria, no urinary frequency. No melena, no h ematemesis, no abdominal pain, no headache, no diplopia, no sore throat, no new skin rash. PAST MEDICAL HISTORY: 1. Status post CHF. 2. Chronic renal failure from cardiorenal syndrome versus hypertensive nephropathy. 3. History of cardiomyopathy. 4. Chronic leg edema. 5. Coronary artery disease. 6. Hypertension. 7. Hyperlipidemia. 8. Emphysema status post pulmonary abscess. 9. History of infrarenal aortic aneurysm. PAST SURGICAL HISTORY: 1. Status post pacemaker placement. 2. Status post AICD placement. 3. Status post cardiac catheterization. 4. Status post herniorrhaphy. 5. Status post colonoscopy. SOCIAL HISTORY: The patient is single, lives with his son. He has 2 children. Smoked for 20 years 1 pack a day. Alcohol none. 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 Education; high school. No blood t ransfusion. No IV drug abuse. ALLERGIES: None. TRAUMA: None. FAMILY HISTORY: No ESRD. IMMUNIZATIONS: Up to date. HOSPITALIZATIONS: Please see past medical history. PHYSICAL EXAMINATION: VITAL SIGNS: Blood pressure 103/68, heart rate 65, respiratory rate 18, temperature 97.3, pulse ox 100%. GENERAL: Noted to be awake, comfortable, not in distress, sitting. HEENT: Pinkish conjunctivae, anicteric sclerae. NECK: No neck mass, no carotid bruits, no JVD. CHEST: No deformities. LUNGS: Decreased breath sounds. HEART: Normal sinus rhythm. No murmur, no gallops or rubs. ABDOMEN: Globular, soft, nontender, no masses. EXTREMITIES: No edema. MEDICATIONS: 05/16/2017 - Maalox p.r.n., DuoNeb q.6 hourly, Calcitriol 0.25 mcg tab daily, ferrous sulfate 325 mg q.a.m., Zofran 4 mg IV q.6 h. p.r.n., Protonix 40 mg tab once a day, Nephro-Ethan 1 ta b daily. LABORATORY: 05/15/2017 - Sodium 137, potassium is noted at 5.0, chloride 96, carbon dioxide 32, BUN 74, creatinine 3.28, GFR 23 mL per minute, glucose 88, calcium 9.1, BNP is 8,873, troponin I 0.029. Further review of his serum creatinine shows the following; 05/05/2007 creatinine was 3.0, creatinine 3.16, 04/24/2017 creatinine 2.73. Chest x-ray, increased lung markings. Cardiac echo pending. ASSESSMENT AND PLAN: 1. Acute kidney injury on top of his chronic renal failure. I suspect a superimposed prerenal azot emia. Currently off diuretics. Continue supportive care. I do not see any indication for any dial ytic intervention with this patient. Please note diuretics have been placed on hold. 2. Near syncopal episode - this could be related to some degree of volume depletion with this patie nt 3. History of cardiomyopathy. Repeat cardiac echo was done. Cardiology is following. Overall, I agree with current management. I will be rechecking a base met today and in the a.m.
[2017-05-16 11:57] LABS: #Lymphocytes 0.5 thou/uL (1.20-3.40); #Monocytes 0.6 thou/uL (0.11-0.59); #Neutrophils 4.6 thou/uL (1.40-6.50); %Basophils 0.3 % (0.0-1.0); %Eosinophils 0.5 % (0.0-10.0); %Lymphocytes 8.8 % (21.0-51.0); %Monocytes 10.7 % (0.0-10.0); Hematocrit 37.1 % (42.0-52.0); Mean Platelet Volume 9.9 fL (7.4-10.4); Red Blood Cell (RBC) Count 4.15 mill/uL (4.70-6.10); White Blood Cell (WBC) Count 5.8 thou/uL (4.8-10.8)
[2017-05-16 12:06] LABS: Anion Gap 12 mmol/L (10-20); BUN (Urea Nitrogen) 82 mg/dL (8.4-25.7); BUN/Creatinine Ratio 25.08; Calc. Creatinine Clearance 27 mL/min (70-130); Calcium 8.9 mg/dL (7.8-10.44); Carbon Dioxide 33 mmol/L (23-31); Chloride 97 mmol/L (98-107); Estimated GFR-MDRD 23; Magnesium 2.6 mg/dL (1.6-2.6); Phosphorus 4.5 mg/dL (2.3-4.7); Uric Acid 13.2 mg/dL (3.5-7.2)
[2017-05-16 12:14] LABS: Anion Gap 11 mmol/L (10-20); BUN (Urea Nitrogen) 84 mg/dL (8.4-25.7); Calc. Creatinine Clearance 27 mL/min (70-130); Carbon Dioxide 36 mmol/L (23-31); Chloride 96 mmol/L (98-107); Estimated GFR-MDRD 23
--- NOTE | 2017-05-16 17:26 | PDOC.PN ---
- Subjective Encounter Start Date: 05/16/17 Encounter Start Time: 10:30 Patient seen and examined. Feels better. No overnight events - Objective Resuscitation Status: Resuscitation Status FULL:Full Resuscitation MAR Reviewed: Yes Vital Signs & Weight: Vital Signs (12 hours) Temp Pulse Pulse Resp BP BP Pulse Ox 05/16/17 15:30 97.9 F 64 18 101/67 97 05/16/17 14:42 61 20 05/16/17 11:20 97.8 F 77 16 106/68 92 L 05/16/17 09:47 74 95/72 05/16/17 08:00 97.3 F L 65 18 05/16/17 07:38 97.3 F L 65 18 103/68 100 05/16/17 06:58 94 L 05/16/17 06:54 61 20 94 L Pulse Ox 05/16/17 15:30 05/16/17 14:42 05/16/17 11:20 05/16/17 09:47 96 05/16/17 08:00 05/16/17 07:38 05/16/17 06:58 05/16/17 06:54 Weight Weight 189 lb 6.4 oz I&O: 05/15/17 05/16/17 05/17/17 06:59 06:59 06:59 Intake Total 960 Output Total 575 300 Balance 385 -300 Result Diagrams: 05/16/17 11:28 05/16/17 11:28 EKG Reviewed by me: Yes (Tele SR) Phys Exam - Physical Examination Constitutional: NAD Respiratory: no wheezing, no rhonchi Dec AE at bases Cardiovascular: RRR, no rub Gastrointestinal: soft, non-tender, positive bowel sounds Neurological: non-focal, moves all 4 limbs Psychiatric: A&O x 3 Dx/Plan (1) General weakness Code(s): R53.1 - WEAKNESS Status: Chronic (2) Chronic left ventricular systolic dysfunction Code(s): I51.9 - HEART DISEASE, UNSPECIFIED Status: Chronic (3) ANTHONY (acute kidney injury) Code(s): N17.9 - ACUTE KIDNEY FAILURE, UNSPECIFIED Status: Acute (4) CKD (chronic kidney disease) stage 4, GFR 15-29 ml/min Code(s): N18.4 - CHRONIC KIDNEY DISEASE, STAGE 4 (SEVERE) Status: Chronic (5) Elevated troponin Code(s): R79.89 - OTHER SPECIFIED ABNORMAL FINDINGS OF BLOOD CHEMISTRY Status : Acute (6) COPD (chronic obstructive pulmonary disease) Status: Chronic (7) Hypertension Code(s): I10 - ESSENTIAL (PRIMARY) HYPERTENSION Status: Chronic (8) GERD (gastroesophageal reflux disease) Code(s): K21.9 - GASTRO-ESOPHAGEAL REFLUX DISEASE WITHOUT ESOPHAGITIS Status: Chronic (9) Other issues per previous notes - Plan cont current plan of care, plan discussed w/ family, PT/OT, DVT proph w/SCDs * Nephrology/Cardiology following * AM labs * Cont to monitor * Palliative care following * Cont current meds as below Review of Systems - Review of Systems Respiratory: negative: Cough, Dry, Shortness of Breath, Hemoptysis, SOB with Excertion, Pleuritic Pain, Sputum, Wheezing Cardiovascular: negative: Chest Pain, Palpitations, Orthopnea, Paroxysmal Noc. Dyspnea, Edema, Light Headedness, Other - Medications/Allergies Allergies/Adverse Reactions: Allergies Allergy/AdvReac Type Severity Reaction Status Date / Time Fish Containing Products Allergy Intermediate Hives Verified 05/15/17 16:55 Iodine and Iodide Containing Allergy Verified 05/15/17 16:55 Produc shellfish derived Allergy Hives Verified 05/15/17 16:55 Medications: Current Medications Acetaminophen (Tylenol) 650 mg PO Q4H PRN PRN Reason: Headache/Fever or Pain Al Hydroxide/Mg Hydroxide (Maalox) 30 ml PO Q6H PRN PRN Reason: Heartburn or Indigestion Albuterol/Ipratropium (Duoneb) 3 ml NEB [id number] [facility] Last Admin: 05/16/17 14:42 Dose: 3 ml Artificial Tears (Tears Naturale) 0 drop EA EYE PRN PRN PRN Reason: Dry Eyes Calcitriol (Rocaltrol) 0.25 mcg PO DAILY [facility] Last Admin: 05/16/17 09:57 Dose: 0.25 mcg Ferrous Sulfate (Feosol) 325 mg PO QAM-WM [facility] Last Admin: 05/16/17 09:57 Dose: 325 mg Guaifenesin (Robitussin Sf) 200 mg PO Q4H PRN PRN Reason: Cough Last Admin: 05/16/17 05:34 Dose: 200 mg Hydralazine HCl (Apresoline) 10 mg SLOW IVP Q4H PRN PRN Reason: Systolic BP > 180 Loperamide HCl (Imodium) 2 mg PO PRN PRN PRN Reason: Diarrhea/Loose Stools Magnesium Hydroxide (Milk Of Magnesium) 30 ml PO DAILYPRN PRN PRN Reason: Constipation Mineral Oil/White Petrolatum (Eucerin Cream) 0 gm TOP BIDPRN PRN PRN Reason: Dry Skin Mometasone Furoate/Formoterol Fumar (Dulera 200 Mcg/5 Mcg Inhaler) 2 puff INH BID-RT [facility] Last Admin: 05/16/17 06:53 Dose: 2 puff Nitroglycerin (Nitrostat) 0.4 mg SL Q5MIN PRN PRN Reason: Chest Pain Ondansetron HCl (Zofran Odt) 4 mg PO Q6H PRN PRN Reason: Nausea/Vomiting Ondansetron HCl (Zofran) 4 mg IVP Q6H PRN PRN Reason: Nausea/Vomiting Pantoprazole Sodium (Protonix) 40 mg PO DAILY [facility] Last Admin: 05/16/17 09:57 Dose: 40 mg Senna (Senokot) 2 tab PO HSPRN PRN PRN Reason: Constipation Sodium Chloride ([place] Nasal [place] 0.65%) 0 ml EA NARE QIDPRN PRN PRN Reason: Nasal Congestion Vitamin B Complex/Vit C/Folic Acid (Nephro-Ethan Tablet) 1 tab PO DAILY [facility] Last Admin: 05/16/17 09:57 Dose: 1 tab
[2017-05-17 05:44] LABS: Anion Gap 13 mmol/L (10-20); BUN (Urea Nitrogen) 86 mg/dL (8.4-25.7); Calc. Creatinine Clearance 27 mL/min (70-130); Carbon Dioxide 33 mmol/L (23-31); Chloride 96 mmol/L (98-107); Estimated GFR-MDRD 24
[2017-05-17] MEDS: Mometasone/Formoterol 120 PUFF INHALER INH SCH ×2 (07:58→18:50)
[2017-05-17] MEDS: Ferrous Sulfate 325 MG TAB PO SCH (08:13)
[2017-05-17] MEDS: Folic Acid/Vit B Comp W-C PO SCH (08:13)
[2017-05-17] MEDS: Calcitriol 0.25 MCG CAP PO SCH (08:13)
--- NOTE | 2017-05-17 09:40 | PRG ---
DATE OF SERVICE: 05/17/2017 RENAL MEDICINE SUBJECTIVE: Mr. López is a 66-year-old black male seen for his acute kidney injury on top of his chronic renal failure. He has a superimposed hemodynamically mediated renal dysfunction. He came i n short of breath. At that time, he was said to have been diuresed. However, due to the worsening renal dysfunction, his diuretics currently on hold. He also was seen by Cardiology. In addition, w liana are following him up for his acute kidney injury on top of his chronic renal failure. He is breat gunjan better. Please note he has also underlying chronic obstructive pulmonary disease. PHYSICAL EXAMINATION: VITAL SIGNS: Blood pressure is 91/74, heart rate 64, respiratory rate 18, temperature 97.9, and pul se ox 93%. GENERAL: Noted to be awake, sitting comfortable, not in distress. SKIN: Adequate turgor. HEENT: Pinkish conjunctivae. Anicteric sclerae. NECK: No neck mass, no carotid bruits, no JVD. CHEST: No deformities. LUNGS: Decreased breath sounds. No wheezing. HEART: Normal sinus rhythm. No murmur, no gallops, no rubs. ABDOMEN: Globular, soft, nontender, no masses. EXTREMITIES: Trace edema. MEDICATIONS: Medications of 05/17/2017 was reviewed. LABORATORY DATA: Laboratories of 05/17/2017; sodium 137, potassium 4.7, chloride 96, carbon dioxide 33, BUN 86, creatinine 3.19, GFR 24 mL per minute, glucose 86, calcium 9. TSH 1.06. ASSESSMENT AND PLAN: 1. Acute kidney injury on top of his chronic renal failure - superimposed, hemodynamically mediated renal dysfunction. Currently off diuretics. There is no indication for any dialytic intervention. Continue supportive care. 2. Shortness of breath, multifactorial. The patient has underlying cardiomyopathy as well as chron ic obstructive pulmonary disease. Continue supportive care. Cardiology is following. 3. Case discussed at length with the son. Recheck basic metabolic panel in a.m.
--- NOTE | 2017-05-17 12:12 | PRG ---
DATE OF SERVICE: 05/17/2017 Mr. López states he is doing better. His symptoms have resolved. No syncope, presyncope, dizzine ss, lightheadedness. PHYSICAL EXAMINATION: VITAL SIGNS: Blood pressure 111/67, pulse 69, temperature 97.3. LUNGS: Clear to auscultation. CARDIAC: Regular rate and rhythm. ABDOMEN: Soft, nontender, nondistended. EXTREMITIES: No edema. IMPRESSION: 1. Presyncope. 2. Dizziness. RECOMMENDATIONS: Mr. López was felt to be orthostatic. This has improved. His medications were adjusted. At this point, will hold off on beta fani therapy, CLEO inhibitor therapy and ARB due t o hypotension. We will reevaluate as an outpatient.
[2017-05-17] MEDS ORDERED: Loratadine 10 MG TAB PO PRN (13:47)
--- NOTE | 2017-05-17 13:50 | PDOC.PN ---
- Subjective Encounter Start Date: 05/17/17 Encounter Start Time: 12:30 Patient seen and examined. No new complaints. No overnight events. No CP/SOB. Feels better. - Objective Resuscitation Status: Resuscitation Status FULL:Full Resuscitation MAR Reviewed: Yes Vital Signs & Weight: Vital Signs (12 hours) Temp Pulse Pulse Resp BP BP BP 05/17/17 11:15 97.3 F L 69 18 05/17/17 10:25 67 110/76 108/69 05/17/17 08:10 97.9 F 64 18 05/17/17 07:05 97.9 F 64 18 05/17/17 04:44 97.4 F L 62 20 111/67 BP Pulse Ox Pulse Ox 05/17/17 11:15 111/67 93 L 05/17/17 10:25 93 L 05/17/17 08:10 93 L 05/17/17 07:05 91/74 93 L 05/17/17 04:44 98 Weight Weight 189 lb 4.8 oz I&O: 05/16/17 05/17/17 05/18/17 06:59 06:59 06:59 Intake Total 960 960 840 Output Total 575 300 100 Balance 385 660 740 Result Diagrams: 05/16/17 11:28 05/17/17 04:51 EKG Reviewed by me: Yes (Tele paced) Phys Exam - Physical Examination Constitutional: NAD Respiratory: no wheezing, no rhonchi Scat rales at bases Cardiovascular: RRR, no rub Gastrointestinal: soft, non-tender, positive bowel sounds Musculoskeletal: edema present Neurological: moves all 4 limbs Dx/Plan (1) General weakness Code(s): R53.1 - WEAKNESS Status: Chronic Comment: with Nearsyncope - suspected due to Orthostatic hypotension - improved (2) Chronic left ventricular systolic dysfunction Code(s): I51.9 - HEART DISEASE, UNSPECIFIED Status: Chronic Comment: ACEI/ ARB/Betablockers on hold due to hypotension/Near syncope (3) ANTHONY (acute kidney injury) Code(s): N17.9 - ACUTE KIDNEY FAILURE, UNSPECIFIED Status: Acute Comment: Dr Epps following (4) CKD (chronic kidney disease) stage 4, GFR 15-29 ml/min Code(s): N18.4 - CHRONIC KIDNEY DISEASE, STAGE 4 (SEVERE) Status: Chronic (5) Elevated troponin Code(s): R79.89 - OTHER SPECIFIED ABNORMAL FINDINGS OF BLOOD CHEMISTRY Status : Acute Comment: prob due to CHF (6) COPD (chronic obstructive pulmonary disease) Status: Chronic (7) Hypertension Code(s): I10 - ESSENTIAL (PRIMARY) HYPERTENSION Status: Chronic (8) GERD (gastroesophageal reflux disease) Code(s): K21.9 - GASTRO-ESOPHAGEAL REFLUX DISEASE WITHOUT ESOPHAGITIS Status: Chronic (9) Other issues per previous notes Comment: Chronic resp failure on home O2, PVD, Chronic anemia - Plan cont current plan of care, DVT proph w/SCDs * AM labs * CHF meds on hold * Nephrology/Cardiology following * AM labs * Palliative care following * Cont current meds as below * On fluid restriction * SNF eval Review of Systems - Review of Systems Respiratory: negative: Cough, Dry, Shortness of Breath, Hemoptysis, SOB with Excertion, Pleuritic Pain, Sputum, Wheezing Cardiovascular: negative: Chest Pain, Palpitations, Orthopnea, Paroxysmal Noc. Dyspnea, Edema, Light Headedness, Other Gastrointestinal: negative: Nausea, Vomiting, Abdominal Pain, Diarrhea, Constipation, Melena, Hematochezia, Other - Medications/Allergies Allergies/Adverse Reactions: Allergies Allergy/AdvReac Type Severity Reaction Status Date / Time Fish Containing Products Allergy Intermediate Hives Verified 05/15/17 16:55 Iodine and Iodide Containing Allergy Verified 05/15/17 16:55 Produc shellfish derived Allergy Hives Verified 05/15/17 16:55 Medications: Current Medications Acetaminophen (Tylenol) 650 mg PO Q4H PRN PRN Reason: Headache/Fever or Pain Al Hydroxide/Mg Hydroxide (Maalox) 30 ml PO Q6H PRN PRN Reason: Heartburn or Indigestion Albuterol/Ipratropium (Duoneb) 3 ml NEB [id number] [facility] Last Admin: 05/17/17 13:05 Dose: Not Given Artificial Tears (Tears Naturale) 0 drop EA EYE PRN PRN PRN Reason: Dry Eyes Calcitriol (Rocaltrol) 0.25 mcg PO DAILY [facility] Last Admin: 05/17/17 08:13 Dose: 0.25 mcg Ferrous Sulfate (Feosol) 325 mg PO QAM-WM [facility] Last Admin: 05/17/17 08:13 Dose: 325 mg Guaifenesin (Robitussin Sf) 200 mg PO Q4H PRN PRN Reason: Cough Last Admin: 05/16/17 05:34 Dose: 200 mg Hydralazine HCl (Apresoline) 10 mg SLOW IVP Q4H PRN PRN Reason: Systolic BP > 180 Loperamide HCl (Imodium) 2 mg PO PRN PRN PRN Reason: Diarrhea/Loose Stools Loratadine (Claritin) 10 mg PO DAILY PRN PRN Reason: Allergies Magnesium Hydroxide (Milk Of Magnesium) 30 ml PO DAILYPRN PRN PRN Reason: Constipation Mineral Oil/White Petrolatum (Eucerin Cream) 0 gm TOP BIDPRN PRN PRN Reason: Dry Skin Mometasone Furoate/Formoterol Fumar (Dulera 200 Mcg/5 Mcg Inhaler) 2 puff INH BID-RT [facility] Last Admin: 05/17/17 07:58 Dose: Not Given Nitroglycerin (Nitrostat) 0.4 mg SL Q5MIN PRN PRN Reason: Chest Pain Ondansetron HCl (Zofran Odt) 4 mg PO Q6H PRN PRN Reason: Nausea/Vomiting Ondansetron HCl (Zofran) 4 mg IVP Q6H PRN PRN Reason: Nausea/Vomiting Pantoprazole Sodium (Protonix) 40 mg PO DAILY [facility] Last Admin: 05/17/17 08:13 Dose: 40 mg Senna (Senokot) 2 tab PO HSPRN PRN PRN Reason: Constipation Sodium Chloride ([place] Nasal [place] 0.65%) 0 ml EA NARE QIDPRN PRN PRN Reason: Nasal Congestion Vitamin B Complex/Vit C/Folic Acid (Nephro-Ethan Tablet) 1 tab PO DAILY [facility] Last Admin: 05/17/17 08:13 Dose: 1 tab
[2017-05-18 05:49] LABS: Anion Gap 11 mmol/L (10-20); BUN (Urea Nitrogen) 74 mg/dL (8.4-25.7); Calc. Creatinine Clearance 30 mL/min (70-130); Calcium 9.1 mg/dL (7.8-10.44); Carbon Dioxide 34 mmol/L (23-31); Chloride 96 mmol/L (98-107); Estimated GFR-MDRD 27
[2017-05-18] MEDS: Mometasone/Formoterol 120 PUFF INHALER INH SCH (06:43)
--- NOTE | 2017-05-18 08:34 | CON ---
DATE OF SERVICE: 05/18/2017 Mr. López is doing much better. No recurrent episodes of syncope, presyncope, lightheadedness or dizziness. PHYSICAL EXAMINATION: VITAL SIGNS: Blood pressure 140/81, pulse 79, temperature 98.3. LUNGS: Clear to auscultation. HEART: Regular rate and rhythm. ABDOMEN: Soft, nontender, nondistended. EXTREMITIES: No edema. PERTINENT LABORATORY: None today. IMPRESSION: 1. Presyncope. 2. Status post implantable cardioverter/defibrillator. 3. Hypertension. 4. Orthostatic hypotension. RECOMMENDATIONS: The patient's symptoms are resolved. I did check to see if his ICD has been inter rogated. It has not. We will interrogate ICD prior to his discharge. If no dysrhythmias, it would be okay from my standpoint to discharge home.
[2017-05-18] MEDS: Calcitriol 0.25 MCG CAP PO SCH (09:24)
[2017-05-18] MEDS: Ferrous Sulfate 325 MG TAB PO SCH (09:24)
[2017-05-18] MEDS: Folic Acid/Vit B Comp W-C PO SCH (09:24)
--- NOTE | 2017-05-18 13:03 | PDOC.PN ---
- Subjective Encounter Start Date: 05/18/17 Encounter Start Time: 12:30 Patient seen and examined. No new complaints. No overnight events - Objective Resuscitation Status: Resuscitation Status FULL:Full Resuscitation MAR Reviewed: Yes Vital Signs & Weight: Vital Signs (12 hours) Temp Pulse Resp BP BP BP Pulse Ox 05/18/17 12:00 98.2 F 70 20 110/64 110/66 116/68 98 05/18/17 07:45 98.9 F 68 18 107/71 96 05/18/17 07:30 98.3 F 79 12 94 L 05/18/17 06:43 79 12 05/18/17 06:35 91 L 05/18/17 06:32 79 12 05/18/17 03:33 97.7 F 69 18 123/81 94 L Weight Weight 187 lb 3.2 oz I&O: 05/17/17 05/18/17 05/19/17 06:59 06:59 06:59 Intake Total 960 1516 300 Output Total 300 780 Balance 660 736 300 Result Diagrams: 05/16/17 11:28 05/18/17 05:19 Phys Exam - Physical Examination Constitutional: NAD Respiratory: no wheezing, no rhonchi Cardiovascular: RRR, no rub Gastrointestinal: soft, non-tender, positive bowel sounds Neurological: moves all 4 limbs Dx/Plan (1) Acute on chronic combined systolic and diastolic heart failure Code(s): I50.43 - ACUTE ON CHRONIC COMBINED SYSTOLIC AND DIASTOLIC HRT FAIL Status: Acute Comment: ACEI/ARB/Aldactone/Betablockers on hold due to hypotension/Near syncope (2) General weakness Code(s): R53.1 - WEAKNESS Status: Chronic Comment: with Nearsyncope - suspected due to Orthostatic hypotension - improved (3) ANTHONY (acute kidney injury) Code(s): N17.9 - ACUTE KIDNEY FAILURE, UNSPECIFIED Status: Acute Comment: Dr Epps following (4) CKD (chronic kidney disease) stage 4, GFR 15-29 ml/min Code(s): N18.4 - CHRONIC KIDNEY DISEASE, STAGE 4 (SEVERE) Status: Chronic (5) Elevated troponin Code(s): R79.89 - OTHER SPECIFIED ABNORMAL FINDINGS OF BLOOD CHEMISTRY Status : Acute Comment: prob due to CHF (6) COPD (chronic obstructive pulmonary disease) Status: Chronic Qualifiers: COPD type: COPD with acute exacerbation Qualified Code(s): J44.1 - Chronic obstructive pulmonary disease with (acute) exacerbation (7) Hypertension Code(s): I10 - ESSENTIAL (PRIMARY) HYPERTENSION Status: Chronic (8) GERD (gastroesophageal reflux disease) Code(s): K21.9 - GASTRO-ESOPHAGEAL REFLUX DISEASE WITHOUT ESOPHAGITIS Status: Chronic (9) Other issues per previous notes Comment: Chronic resp failure on home O2, PVD, Chronic anemia, h/o HTN - Plan cont current plan of care * CUBA Javier
--- NOTE | 2017-05-18 13:21 | DIS ---
DATE OF DISCHARGE: 05/18/2017 DISCHARGE DISPOSITION: senior care facility ([facility]). ALLERGIES: The patient is allergic to IODINE. DISCHARGE MEDICATIONS: 1. Calcitriol 0.5 mcg daily. 2. Colace 100 mg daily. 3. Ferrous sulfate 325 mg daily. 4. Folic acid with vitamin B complex 1 tablet daily. 5. DuoNeb as needed. 6. Dulera 200/5 mcg 2 puffs b.i.d. 7. Omeprazole 20 mg daily. 8. Tylenol as needed. 9. Omeprazole 20 mg daily. 10. Dulcolax as needed. 11. Lasix 40 mg as needed for edema. 12. Loratadine 10 mg daily. 13. Sublingual nitroglycerin as needed. The patient was seen and examined on the day of discharge, denies any new complaints. Denies any li ghtheadedness, dizziness or significant shortness of breath. BRIEF HOSPITAL COURSE: The patient is a 66-year-old -[place]ish male with chronic systolic and diastolic heart failure with echocardiogram showing ejection fraction of 20-25%, presented to the [facility] with generalized weakness and frequent falls. Please refer to the history and physical date d 05/15/2017 for further details. The patient was admitted to the hospital with the diagnosis of generalized weakness, frequent falls, probably secondary to orthostatic hypotension. Diuretics and beta blockers were discontinued. He was seen by Cardiology and Nephrology. His ICD was interrogated as well. Repeat echocardiogram elaine wed ejection fraction of 20-25% with diastolic dysfunction, moderate aortic regurgitation, moderate tricuspid regurgitation and mild to moderate mitral regurgitation. His orthostatic vitals have been negative after discontinuation of the diuretics. He has been cleared by consultants for discharge. SIGNIFICANT LABORATORY DATA: Creatinine on admission was 3.28, at discharge 2.87. Albumin 3.2. TS H 1.0. Vitamin B12, folic acid in normal range. Hemoglobin 11.6. Urinalysis showed 7-10 WBCs with out any bacteria. It showed hyaline cast. Urine cultures were negative. BNP was 8873. IMAGING: CT scan of the brain on admission was negative for acute findings. Cervical spine CT was negative for any fractures or dislocation. Chest x-ray on admission was negative. FINAL DIAGNOSES: 1. Generalized weakness with frequent falls, probably secondary to orthostatic hypotension, resolve d after discontinuation of beta blockers. The patient is not on CLEO inhibitor due to renal failure. 2. Acute kidney injury on chronic kidney disease stage 4. 3. Mild protein-calorie malnutrition. 4. Chronic anemia. 5. Chronic thrombocytopenia of unclear etiology. 6. Acute on chronic systolic and diastolic heart failure. Currently, not on CLEO inhibitor, ARB, Al dactone or beta fani due to orthostatic hypotension and renal insufficiency. 7. Chronic respiratory failure on home oxygen with acute hypercapnic respiratory failure. 8. History of hypertension. 9. Dyslipidemia. 10. Peripheral vascular disease. 11. Anemia of renal insufficiency. 12. History of automatic implantable cardioverter defibrillator. 13. Hyperuricemia. Plan of care was discussed with the patient and he stated understanding. Total time coordinating the discharge of this patient was 38 minutes.
[2017-05-18 16:25] VITALS: BP 115/66; TEMP 97.5
== END 2017-05-18 17:23 | DRG 312 ==
LOC: ERS 06:47 → 2SE 09:30
PROVIDERS: ADMIT Internal Medicine; ATTEND Internal Medicine
PROC: 4B02XTZ Measurement of Cardiac Defibrillator, External Approach (ICD-10-PCS; principal; 2017-05-15)
DX: I95.2 Hypotension due to drugs (principal); N17.9 Acute kidney failure, unspecified; I50.43 Acute on chronic combined systolic (congestive) and diastolic (congestive) heart failure; J96.12 Chronic respiratory failure with hypercapnia; D61.818 Other pancytopenia; E87.2 Acidosis; N18.4 Chronic kidney disease, stage 4 (severe); I42.9 Cardiomyopathy, unspecified; I13.0 Hypertensive heart and chronic kidney disease with heart failure and stage 1 through stage 4 chronic kidney disease, or unspecified chronic kidney disease; E44.1 Mild protein-calorie malnutrition; D69.6 Thrombocytopenia, unspecified; T44.7X5A Adverse effect of beta-adrenoreceptor antagonists, initial encounter; T50.2X5A Adverse effect of carbonic-anhydrase inhibitors, benzothiadiazides and other diuretics, initial encounter; Z95.810 Presence of automatic (implantable) cardiac defibrillator; D64.9 Anemia, unspecified; E78.5 Hyperlipidemia, unspecified; Z87.891 Personal history of nicotine dependence; I25.10 Atherosclerotic heart disease of native coronary artery without angina pectoris; R41.82 Altered mental status, unspecified
CPT/HCPCS: 36415; 70450; 71010; 72125; 80048; 80069; 81003; 81015; 82553; 82607; 82746; 82805; 83605; 83735; 83880; 84443; 84484; 84550; 85025; 87086; 93005; 93306; 93798; 94640; 94660; 96374; 96375; G8978-GP-CM; G8979-GP-CK; G8987-GO-CJ; G8988-GO-CI; J1940; J2930; J7620

== ENCOUNTER 2017-05-20 05:24 | Inpatient (IN) | payer MEDICARE ==
[2017-05-20 07:15] LABS: #Eosinphils 0.2 thou/uL (0.0-0.7); #Lymphocytes 0.7 thou/uL (1.20-3.40); #Monocytes 0.5 thou/uL (0.11-0.59); #Neutrophils 2.8 thou/uL (1.40-6.50); %Basophils 0.2 % (0.0-1.0); %Eosinophils 5.6 % (0.0-10.0); %Monocytes 11.8 % (0.0-10.0); Red Blood Cell (RBC) Count 4.14 mill/uL (4.70-6.10); White Blood Cell (WBC) Count 4.3 thou/uL (4.8-10.8)
[2017-05-20 07:15] LABS: PTT 31.4 SEC (22.9-36.1); Prothrombin Time 16.7 SEC (12.0-14.7)
[2017-05-20 07:28] LABS: BUN (Urea Nitrogen) 54 mg/dL (8.4-25.7); CK (CPK) 187 U/L (30-200); Calc. Creatinine Clearance 0 mL/min (70-130); Calcium 8.8 mg/dL (7.8-10.44); Estimated GFR-MDRD 35; Magnesium 2.3 mg/dL (1.6-2.6)
[2017-05-20 07:33] LABS: Troponin I 0.022 ng/mL (< 0.028)
[2017-05-20 07:39] LABS: Anion Gap 10 mmol/L (10-20); Carbon Dioxide 36 mmol/L (23-31); Chloride 98 mmol/L (98-107)
--- NOTE | 2017-05-20 07:57 | CT ---
CT BRAIN WITHOUT CONTRAST: HISTORY: Trauma. COMPARISON: CT brain 05/15/17. FINDINGS: New left periorbital hematoma in the soft tissues. No acute territorial infarct or hemorrhage. Int racranial findings are unchanged from 5 days prior. Calvarium is intact. IMPRESSION: Left periorbital soft tissue contusion without acute intracranial abnormality. POS: [facility]
--- NOTE | 2017-05-20 08:50 | CT ---
CT CERVICAL SPINE WITHOUT CONTRAST: HISTORY: Trauma, fall. COMPARISON: CT cervical spine 05/15/17. FINDINGS: No acute fracture or malalignment. Mild spondylosis. Mild emphysematous changes of the lung apices . Mild soft tissue edema of the right neck supraclavicular soft tissues. There is also mild edema of the left neck supraclavicular soft tissues with a few enlarged lymph nodes. This appears relativ fallon similar to the comparison examination. IMPRESSION: No acute fracture or malalignment of the cervical spine. POS: [facility]
[2017-05-20 08:53] LABS: Anion Gap 6 mmol/L (-14-95); T. Carbon Dioxide 38.8 mmol/L (1.0-85.0); vO2 Saturation-calc 58.7 % (0.0-100.0)
--- NOTE | 2017-05-20 09:06 | CT ---
CT ORBITS WITHOUT CONTRAST: HISTORY: Fall. COMPARISON: None. FINDINGS: Nasal bones are intact. Medial orbital grissom, lateral orbital grissom, and orbital floors are intact as well as the zygoma, zygomatic arch, pterygoid plates. Orbital roofs are intact. There is what a ppears to be prior maxillary sinus surgery. Mild degenerative disease of the temporomandibular joints. Large left periorbital hematoma and small right periorbital hematoma. Orbits are intact. IMPRESSION: 1. Soft tissue periorbital hematoma and left forehead hematoma. No acute fracture of the face. 2. Chronic maxillary sinusitis and osteitis. POS: [facility]
--- NOTE | 2017-05-20 09:08 | RAD ---
CHEST 1 VIEW: HISTORY: Injury. Fall. COMPARISON: None. FINDINGS: Mild blunting of the bilateral costophrenic sulcus, similar. Heart size upper limits of normal. Th ere are linear opacities in the left lung base. No pneumothorax. IMPRESSION: Mild increased linear opacities left lung base may represent atelectasis or developing pneumonia/asp iration. Followup recommended. POS: [facility]
[2017-05-20] MEDS ORDERED: Furosemide 40 MG/4 ML VIAL ONE (10:21)
[2017-05-20 14:52] VITALS: BMI 26.9
--- NOTE | 2017-05-20 18:13 | HP ---
HISTORY OF PRESENT ILLNESS: Mr. López is a 66-year-old black male. He fell last night and was br ought to the ER by early this morning. He was evaluated and he was found to have elevated CO2 sugge stive of CO2 narcosis. He was offered to start CPAP; however, he refused. We were asked to see him in view of hypercapnic respiratory failure. He denies any associated headache. PAST MEDICAL HISTORY: Remarkable for COPD, congestive heart failure. He denies previous history of myocardial infarction. He denies diabetes, denies liver disease, denies cerebrovascular accident. PAST SURGICAL HISTORY: Remarkable for bilateral inguinal hernia repair. ALLERGIES: He claims to have allergy to SEAFOOD. SOCIAL HISTORY: He quit smoking about 10-12 years ago. He does have a past history of ETOH abuse. He quit drinking about 20 years ago. FAMILY HISTORY: Reviewed and is not contributory. MEDICATIONS: Prior to admission, he was on Tylenol, Dulcolax, calcitriol, ferrous sulfate, folic/vi tamin B complex, furosemide, DuoNeb, loratadine, sublingual nitroglycerin, omeprazole, mometasone/fo rmoterol. REVIEW OF SYSTEMS: Constitutional: He admits to some weakness. Denies any fever. HEENT: No head ache. No ocular pain, no sore throat, no odynophagia, no earache, no epistaxis. Neck: No neck marisela n, no neck stiffness. Cardiovascular: Admits to shortness of breath. No chest pain. Pulmonary: Some dry cough. Gastrointestinal: No nausea, no vomiting, no diarrhea, no abdominal pain. Genitou rinary: No dysuria, no hematuria. Endocrine: No heat or cold intolerance. No polyuria, polydipsi a, or polyphagia. Hematologic: No abnormal bleeding, no ecchymosis. Lymphatic: No palpable lymph adenopathy, no painful lymphadenopathy. Skin: No rash, no itching. Musculoskeletal: Denies arthr algia. No muscle pain. Allergies: No hayfever. Neurologic: No seizure. Psychiatric: No anxiet y, no depression. PHYSICAL EXAMINATION: GENERAL: At the current time, he is alert, oriented, in no acute distress. He has been off oxygen at the time of examination. VITAL SIGNS: His latest vital signs show a temperature of 98, pulse rate 63, respiratory rate 16, a nd blood pressure 123/88. HEENT: His head is normocephalic and atraumatic. He has a left-sided periorbital edema associated with his recent fall. Both pupils are equal and reactive. There is no conjunctival hyperemia. Ear s and nose are normal. Oral mucosa is moist. Pharyngeal area is clear. NECK: Supple. There is no distention of the jugular veins. No lymphadenopathy felt. Thyroid glan d is not palpable. There is no carotid bruit. CHEST: Symmetrical with regular S1, S2. LUNGS: Show some wheezing and rhonchi. ABDOMEN: Soft. Bowel sounds heard. We could not appreciate any organomegaly. EXTREMITIES: There is no focal area of tenderness. Limbs, he has +2 edema, which appears to be chr onic and edema is probably pitting. NEUROLOGIC: He moves all extremities. LABORATORY DATA: His CBC showed WBC of 4.3, hemoglobin of 11.3, hematocrit of 37, MCV of 89.5, and platelet count of 77. ABG done earlier showed pH of 7.27, pCO2 of 79, pO2 of 36, on blood gas. Whit anne-marie and electrolytes show sodium of 139, potassium of 4.5, chloride of 98, CO2 of 36, BUN of 54, creatinine of 2.29, glucose of 92, calcium of 8.8, magnesium of 2.3. Troponin is elevated at 0.022. BNP is 9281.7. C-spine CT, orbital CT, head CT and chest x-ray were reviewed. Chest x-ray review ed by us, it is consistent with COPD and there is also an enlarged heart. ASSESSMENT AND PLAN: This is a 66-year-old black man with history of chronic obstructive pulmonary disease and congestive heart failure, who was admitted with congestive heart failure exacerbation an d also noticed to have an elevated BUN and creatinine. He denies any previous history of chronic ki dney disease. We will check an ultrasound to exclude any obstructive nephropathy and we will consul t Nephrology. His troponin was also noticed to be elevated at 0.22. We will follow cardiac enzyme and we will get Cardiology evaluation. By the meantime, we will initiate treatment. We will give I V steroid and also bronchodilator. The patient will be admitted to telemetry. We have to mention t hat he refused any BiPAP. We discussed with him regarding his code status and he wants to be FULL C ODE.
[2017-05-20] MEDS: Albuterol Sulfate 2.5 mg/3 ml Neb NEB SCH ×2 (18:54→22:51)
[2017-05-20] MEDS: Ipratropium Bromide 2.5 ml Neb NEB SCH ×2 (18:55→22:51)
--- NOTE | 2017-05-20 20:42 | CON ---
CARDIOLOGY CONSULTATION NOTE DATE OF CONSULTATION: 05/20/2017 REASON FOR CONSULTATION: Elevated BNP. PRIMARY PASSENGER ELEVATOR OPERATOR: Dr. Barber Sandhu. HISTORY OF PRESENT ILLNESS: Mr. López is a pleasant 66-year-old -Malag[place] gentleman who co mes to the hospital after a fall. He was recently discharged from the hospital on the , just a couple days ago on Sunday, today is Sunday. He was admitted for presyncope. He has an AICD in [facility]. He had orthostatic hypotension and some of his medications were changed. He was discharged back to [facility] where he fell that same day because his eyes started to swell up, he was sent over again. In the ER, he was evaluated and found to have an elevated BNP and an ABG apparently wa s done that showed that his CO2 in venous stick was 79 and a pH of 7.27, so he was offered to be rachelle mitchell on a BiPAP, because his breathing was very comfortable, he refused. On my evaluation right now, he is breathing quite comfortably. He feels his breathing is exactly the same as it was before he left. He does not feel that is an issue. He is on room air and he is very comfortable. His main i ssue is he got a swollen eye on the left side and he cannot open the eye, it is so swollen. PAST MEDICAL HISTORY: 1. Chronic systolic heart failure. 2. Hyperlipidemia. 3. Hypertension. PAST SURGICAL HISTORY: 1. ICD placement. 2. Herniorrhaphy. OUTPATIENT MEDICATIONS: Unchanged from a discharge summary just a couple days ago. Please see [facility] e notes for details. ALLERGIES: SHELLFISH and FISH. SOCIAL HISTORY: Quit smoking 20 years ago. No alcohol or drugs. FAMILY HISTORY: Noncontributory. REVIEW OF SYSTEMS: Twelve-point was unremarkable. PHYSICAL EXAMINATION: VITAL SIGNS: Temperature 98.8, pulse 74, respiration rate 24 down to 16, now satting 92% on room ai r and blood pressure 121/58. GENERAL: Awake, alert, oriented x3, in no distress. HEENT: Normocephalic, atraumatic. NECK: Supple. LUNGS: Diminished breath sounds bilaterally. CARDIOVASCULAR: S1, S2. No S3 or S4. No murmurs or rubs. ABDOMEN: Soft, positive bowel sounds. EXTREMITIES: 1+ edema. SKIN: Warm and dry. LABORATORY WORK: Reviewed. CBC with a white count of 4, hemoglobin of 11, hematocrit of 37 and rachelle telet count of 77. Coags are unremarkable. ABG as above. Chemistries showed a BUN of 54, creatini ne of 2.29, which is actually better than his baseline of 3 and much better than what it was back on the . ASSESSMENT AND PLAN: 1. Fall. 2. Left eye hematoma. 3. Chronic systolic heart failure: I think he is well compensated at this time. Continue home dos e of Lasix. That is 40 p.o. daily. Thank you for letting us to participate in the care of your patient. Dr. Sandhu is his primary c ardiologist, will follow in the morning.
[2017-05-20] MEDS: Enoxaparin Sodium 30 MG/0.3 ML SYRINGE SC SCH (20:54)
[2017-05-21] MEDS: Albuterol Sulfate 2.5 mg/3 ml Neb NEB SCH ×2 (03:55→06:53)
[2017-05-21] MEDS: Ipratropium Bromide 2.5 ml Neb NEB SCH ×2 (03:56→06:53)
[2017-05-21] MEDS ORDERED: Aspirin 325 mg Enteric Coated Tablet PO SCH (09:00)
--- NOTE | 2017-05-21 09:34 | PRG ---
DATE OF SERVICE: 05/21/2017 SERVICE: Renal Medicine. SUBJECTIVE: Mr. López is a 63-year-old black male with chronic renal failure, who was admitted du e to a fall. He was also noted to have severely elevated CO2. Please note, he has underlying chron ic obstructive pulmonary disease here. We are now seeing this patient for his chronic renal failure . His renal function is actually much improved. He is at baseline. PHYSICAL EXAMINATION: VITAL SIGNS: Blood pressure is 128/79, heart rate 82, respiratory rate 16, temperature 98.3, pulse ox 94%. GENERAL EXAM: He is awake, sitting comfortable, not in distress. SKIN: Adequate turgor. HEENT: Pinkish conjunctivae. Anicteric sclerae. He has left periorbital ecchymosis. NECK: No neck mass, no carotid bruits, no JVD. LUNGS: Decreased breath sounds. No wheezing. HEART: Normal sinus rhythm. No murmur, no gallops, no rubs. ABDOMEN: Globular, soft, nontender, no masses. EXTREMITIES: No edema. MEDICATIONS: Medications of 05/21/2017, Ecotrin 325 mg every day, Lovenox 30 mg subcutaneous b.i.d. , Solu-Medrol 40 mg IV q.6 hours, DuoNeb q.6 hours. LABORATORY DATA: Laboratories of 05/20/2017, white count 4.2, hemoglobin 11.3. Sodium is 139, pota ssium 4.5, chloride 98, carbon dioxide 36, BUN 54, creatinine 2.29, magnesium 2.3. BNP 9281. Blood gas showed a pCO2 of 79. ASSESSMENT AND PLAN: 1. Chronic obstructive pulmonary disease, having currently started on Solu-Medrol. On DuoNeb q.6 h ours. Continue supportive care. Patient has been breathing well. 2. Chronic renal failure -- stable. As a matter of fact, creatinine is now at baseline. There is no indication for any dialytic intervention in this patient. Continue supportive care. Continue to hold off diuretics or CLEO inhibitors. Overall, I agree with current management. Recheck basic met abolic panel and CBC in a.m.
[2017-05-21] MEDS: Enoxaparin Sodium 30 MG/0.3 ML SYRINGE SC SCH (09:41)
[2017-05-21 12:09] VITALS: BP 120/67; TEMP 98.7
--- NOTE | 2017-05-21 15:45 | DIS ---
DATE OF ADMISSION: 05/20/2017 DATE OF DISCHARGE: 05/21/2017 CHIEF COMPLAINT: Left eye hematoma, status post fall. HOSPITAL COURSE: Patient was admitted because he had a fall at [facility]. He was noted to have a severely elevated CO2. Patient also has chronic kidney disease. He was seen and assessed by Neph rology. His creatinine was noted to be at baseline. The patient has a history of severe COPD and w as actually breathing well and able to ambulate without any problems. He was deemed stable for disc harge with treatment for the left eye hematoma. ADVANCED PRACTICE NURSE: Nephrology, Dr. Epps. PROCEDURES: None. PHYSICAL EXAMINATION: GENERAL: No acute distress. HEAD: Normocephalic. There is a large hematoma with edema to the left orbit. CHEST: Clear to auscultation with some diminished sounds. CARDIAC: Regular rate and rhythm. ABDOMEN: Nontender, nondistended. EXTREMITIES: No clubbing, cyanosis, or edema. DISCHARGE DISPOSITION: Back to [facility]. DISCHARGE ACTIVITY: As tolerated. DISCHARGE DIET: Cardiac. DISCHARGE MEDICATIONS: He will resume his prior home medications, please see the reconciliation. FOLLOWUP: The patient is to follow up with his PCP in 7 to 10 days and to keep all prior scheduled appointments.
--- NOTE | 2017-05-21 17:21 | PRG ---
DATE OF SERVICE: 05/21/2017 SUBJECTIVE: Mr. López is doing well. No recurrent episodes of syncope or presyncope. He recentl y was readmitted for a syncopal episode. His ICD was interrogated on his last admission and was fel t to be negative. History is very vague for Mr. López. OBJECTIVE: VITAL SIGNS: Blood pressure 120/67, pulse 82, temperature 98.7. LUNGS: Clear to auscultation. HEART: Regular rate and rhythm. ABDOMEN: Soft, nontender, and nondistended. EXTREMITIES: No edema. IMPRESSION: Syncope. RECOMMENDATIONS: We will check orthostatics on Mr. López. Mr. López had been seen by Dr. Dolores resendiz in the past at [facility]. We will try to obtain the records.
== END 2017-05-21 14:53 | DRG 291 ==
LOC: ERS 05:24 → 2NO 10:29
PROVIDERS: ADMIT Hospitalist; ATTEND Hospitalist
DX: I13.0 Hypertensive heart and chronic kidney disease with heart failure and stage 1 through stage 4 chronic kidney disease, or unspecified chronic kidney disease (principal); J96.02 Acute respiratory failure with hypercapnia; I50.23 Acute on chronic systolic (congestive) heart failure; I95.1 Orthostatic hypotension; N18.9 Chronic kidney disease, unspecified; J44.9 Chronic obstructive pulmonary disease, unspecified; H57.8 Other specified disorders of eye and adnexa; R55 Syncope and collapse; Z91.013 Allergy to seafood; Z87.891 Personal history of nicotine dependence; W19.XXXA Unspecified fall, initial encounter
CPT/HCPCS: 36415; 70450; 70480; 71010; 72125; 80048; 82330; 82550; 82553; 82803; 83735; 83880; 84484; 85025; 85610; 85730; 93005; 94640; 94660; 96374; J1650; J1940; J2920; J7620

== ENCOUNTER 2017-07-04 06:22 | Inpatient (IN) | payer MEDICARE ==
[2017-07-04] MEDS ORDERED: EPINEPHrine 1 MG/10 ML Abboject SYRINGE ONE (06:40)
[2017-07-04] MEDS ORDERED: Succinylcholine Chloride 20 MG/ML 10 ml SYRINGE FS ONE (06:40)
[2017-07-04] MEDS ORDERED: Fentanyl 20 MCG/ML 250 ML ONE (07:05)
[2017-07-04] MEDS ORDERED: Furosemide 40 MG/4 ML VIAL ONE (07:44)
--- NOTE | 2017-07-04 07:49 | RAD ---
PORTABLE CHEST 1 VIEW: DATE: 07/04/17. TIME: 6:42 a.m. HISTORY: Respiratory distress, respiratory failure. COMPARISON: Comparison is made to the exam of 05/30/17. FINDINGS: Left-sided AICD remains in place. Chronic changes in the lung calhoun are again noted. The heart siz e is prominent but stable. The aorta is tortuous. There has been placement of an endotracheal tube with tip at the level of the clavicular heads. No pneumothoraces or large effusions are seen. A sma ll right pleural effusion is again noted. POS: [facility]
[2017-07-04 08:13] LABS: PTT 33.6 SEC (22.9-36.1); Prothrombin Time 17.8 SEC (12.0-14.7)
[2017-07-04 08:16] LABS: Bilirubin Negative (Negative); Blood, Urine Negative (Negative); Glucose, Urine (Dipstick) Negative (Negative); Ketone, Urine Negative (Negative); Nitrite Negative (Negative); Protein, Urine (Dipstick) 30 mg/dL (Neg-Trace)
[2017-07-04 08:26] LABS: Lactic Acid - Sepsis 2.3 mmol/L (0.5-2.2)
[2017-07-04 08:28] LABS: #Lymphocytes 0.4 thou/uL (1.20-3.40); #Monocytes 0.4 thou/uL (0.11-0.59); #Neutrophils 6.1 thou/uL (1.40-6.50); %Basophils 0.1 % (0.0-1.0); %Eosinophils 0.4 % (0.0-10.0); %Lymphocytes 5.9 % (21.0-51.0); %Monocytes 5.3 % (0.0-10.0); Hematocrit 43.1 % (42.0-52.0); Mean Platelet Volume 9.5 fL (7.4-10.4); White Blood Cell (WBC) Count 6.9 thou/uL (4.8-10.8)
[2017-07-04 08:32] LABS: Anion Gap 7 mmol/L (-14-95); T. Carbon Dioxide 34.4 mmol/L (1.0-85.0); pH (Venous) 7.255 (7.35-7.45); vO2 Saturation-calc 75.4 % (0.0-100.0)
[2017-07-04 08:42] LABS: Oxyhemoglobin 92.3 % (94.0-97.0); Sodium 137 mmol/L (135-148)
[2017-07-04 08:47] LABS: Mechanical Tidal Volume 500 ml; Mode SIMV/PS; Modified Allen's Test POSITIVE; Pressure Support 10 cmH2O; Vent YES
[2017-07-04 08:48] LABS: Troponin I 0.051 ng/mL (< 0.028)
[2017-07-04 08:51] LABS: ALT (SGPT) 32 U/L (8-55); AST (SGOT) 58 U/L (5-34); Alkaline Phosphatase 98 U/L (40-150); Anion Gap 16 mmol/L (10-20); BUN (Urea Nitrogen) 55 mg/dL (8.4-25.7); Bilirubin, Total 1.5 mg/dL (0.2-1.2); Calc. Creatinine Clearance 0 mL/min (70-130); Carbon Dioxide 28 mmol/L (23-31); Chloride 96 mmol/L (98-107); Estimated GFR-MDRD 30; Globulin 4.2 g/dL (2.4-3.5); Protein, Total 7.8 g/dL (5.8-8.1)
[2017-07-04] MEDS ORDERED: Mag-Al 1200 mg/1200 mg/30 ML UDCUP PER TUBE PRN (10:09)
[2017-07-04] MEDS ORDERED: Acetaminophen 325 MG TAB PER TUBE PRN (10:09)
[2017-07-04] MEDS ORDERED: Loperamide HCl 2 MG CAP PER TUBE PRN (10:09)
[2017-07-04] MEDS ORDERED: Ondansetron HCl/PF 4 MG/2 ML Vial IVP PRN (10:09)
[2017-07-04] MEDS ORDERED: Ondansetron ODT 4 MG TAB PER TUBE PRN (10:09)
[2017-07-04] MEDS ORDERED: Bisacodyl 10 MG SUPP PR PRN (10:09)
[2017-07-04] MEDS ORDERED: Sedation Protocol FS SCH (10:09)
[2017-07-04] MEDS ORDERED: Milk Of Magnesia 30 ML UDCUP PER TUBE PRN (10:09)
[2017-07-04] MEDS ORDERED: Propofol 1,000 MG/100 ML VIAL IV PRN (10:32)
[2017-07-04] MEDS ORDERED: Fentanyl 20 MCG/ML 250 ML IVPB SCH (10:32)
[2017-07-04] MEDS ORDERED: Lorazepam 2 MG/ML VIAL SLOW IVP PRN (10:32)
[2017-07-04] MEDS ORDERED: DISCONTINUE PREVIOUS NARCOTIC PAIN MEDICATIONS AND BENZODIAZEPINES FS SCH (10:45)
--- NOTE | 2017-07-04 11:11 | HP ---
PRIMARY CARE PHYSICIAN: Cecilia Nguyen M.D. REASON FOR ADMISSION: Acute respiratory failure, acute on chronic systolic and diastolic congestive heart failure exacerbation, COPD exacerbation. HISTORY OF PRESENT ILLNESS: A 66-year-old -Stateless male who has underlying chronic systolic and diastolic heart failure. He had most recent echocardiography on 05/15/2017 and based on that, his EF is 20%-25%. Lately, he required recurrent admission for same problem. In April, he had 3 admissions and he was most recently admitted in our hospital on 05/30/2017. He was discharged home on 06/05/2017. At that time, he was discharged with palliative care. This morning, patient's son found him underneath his bed and he was gasping for air and he was having extreme respiratory distress and that is why patient's son called paramedics. When paramedics came to his home, he was gurgling. His saturation was 85%. He was given several DuoNeb therapies. He was wheezing all over his lungs and he was having coarse breath sounds and he was more lethargic. He appeared in respiratory distress in the emergency room. Patient' s son wanted to be intubated and that is why in the emergency room, patient was intubated by ER physician per patient's son request. It was noted that the patient was on hospice care for COPD, but patient's son revoked and he wanted to be treated and that is why he required intubation. I saw this patient after intubation, he was under sedation, he was not in position of providing any history and his son already left ER. REVIEW OF SYSTEMS: All review of systems tried to review with the patient, but unable to review at this point because patient is intubated. ALLERGIES: IODINE and SHELL FISH. CURRENT HOME MEDICATIONS: The patient does not have any medication with him, but he was discharged on following or scheduled medications; aspirin 81 mg daily , calcitriol 0.5 mcg daily, Coreg 3.125 mg p.o. b.i.d., Pepcid 20 mg daily, ferrous sulfate 325 mg p.o. daily, Breo Ellipta 1 inhalation daily, Nephro-Ethan 1 tablet p.o. daily, Lasix 40 mg p.o. daily, DuoNeb q.6 hourly, omeprazole 20 mg p.o. daily, and Aldactone 12.5 mg p.o. daily. PAST MEDICAL HISTORY: Chronic systolic and diastolic heart failure with EF 20%- 25%, CKD stage IV, COPD, chronic hypoxic respiratory failure requiring home oxygen therapy via nasal cannula, history of infrarenal abdominal aortic aneurysm, hypertension, dyslipidemia, recurrent fall, peripheral vascular disease, anemia of renal disease, secondary hyperparathyroidism of renal origin , and gastroesophageal reflux disease. PAST SURGICAL HISTORY: AICD placement with subsequent generator replacement in 03/2017. Incision and drainage for abscess in the neck, hernia repair x2. FAMILY HISTORY: Father from complication of heart disease, hypertension, and coronary artery disease runs among several family members. SOCIAL HISTORY: Patient currently was under hospice care for COPD. He has a heavy smoking history in past, but he quit smoking several years ago. He does not have any alcohol or other illicit drug abuse. Previously, he was living with his son, but currently he lives at home and his son is watching him at home. He has recurrent falls. EMERGENCY ROOM COURSE: Patient is given Lasix 40 mg IV and fentanyl was started for sedation protocol. PHYSICAL EXAMINATION: VITAL SIGNS: On arrival, blood pressure 128/83, respiratory rate 14, temperature 97.7, weight 86.1 kilograms. GENERAL: Patient is currently intubated and sedated. HEAD: Normocephalic, atraumatic. EYES: The patient has puffiness of eyelid. Pupil is round and slightly reactive to light. ENT: Endotracheal tube in place, orogastric tube in place. NECK: Elevated JVD, no thyromegaly. LUNGS: End expiratory bilateral wheezing and scattered rales noted especially at base. CARDIAC: S1 and S2 regular. No murmur elicited, no gallop, no rub. ABDOMEN: Soft, bowel sounds present, no distention. No peritoneal sign. EXTREMITIES: Upper extremity; passive movement of all joints are normal. Lower extremity; bilateral lower extremity edema noted. SKIN: Dry skin without any significant rash. NEUROLOGIC: Unable to assess at this point. PSYCHIATRIC: Unable to assess at this point. SIGNIFICANT LABORATORY DATA AND IMAGIN. CBC: WBC 6.9, hemoglobin 13.0, platelets 109, INR 1.4. ABG: pH 7.34, CO2 62.9, O2 75.9, bicarbonate 33.1, saturation 92%. 2. BMP: Sodium 136, potassium 4.3, chloride 96, carbon dioxide 28, BUN 55, creatinine 2.56, calcium 9.0, lactic acid 2.3. 3. LFT: AST 58, ALT 32, alkaline phosphatase 98, albumin 3.6. CK-MB 9.32, troponin I 0.051. 4. Urinalysis unremarkable. 5. Telemetry showing sinus rhythm. ASSESSMENT AND PLAN/IMPRESSION: 1. Acute on chronic respiratory failure with hypoxia and hypercapnia. The patient was in respiratory distress from both chronic obstructive pulmonary disease and congestive heart failure exacerbation, required intubation per family request. At this point, patient's both conditions; chronic obstructive pulmonary disease and congestive heart failure is terminal. He has multiple admissions in our hospital and he was on hospice care. We will consult palliative care. At this point, patient's family member revoked hospice and wanted to do everything possible. We will keep this patient in ICU for vent management. I spoke with Dr. Holbrook and he will manage ventilator. I will consult Cardiology as well. We will treat him with Lasix as well as DuoNeb and Pulmicort nebulization and we will also consider adding steroid. 2. Acute on chronic systolic and diastolic congestive heart failure. The patient will be given Lasix 40 mg IV b.i.d. We will monitor renal function. We will monitor daily weight. Input and output chart and replace electrolytes as needed basis. 3. Chronic obstructive exacerbation with hypoxia and hypercapnia. The patient will be given DuoNeb therapy every 4 hourly along with Pulmicort nebulization twice daily. We will also continue with Solu-Medrol 40 mg IV q.6 hourly along with empiric antibiotic therapy with Levaquin 250 mg IV daily. 4. Lactic acidosis likely related with hypoxia. We will repeat lactic acid tomorrow. We are also starting empiric levofloxacin therapy given his history of chronic obstructive pulmonary disease. 5. Chronic kidney disease stage 4. We will monitor renal function. 6. Elevated troponin, likely due to demand ischemia from cardiomyopathy. Looking at his old record, he also has intermittent elevated troponin. Cardiology already consulted. 7. Anemia of renal disease. We will continue with ferrous sulfate 325 mg p.o. per tube daily and Nephro-Ethan per tube p.o. daily. 8. Secondary hyperparathyroidism of renal origin. We will continue calcitriol 0.5 mcg per tube daily. 9. Gastroesophageal reflux disease. We will continue Protonix 40 mg IV daily. 10. Extreme physical deconditioning from advanced chronic obstructive pulmonary disease and congestive heart failure. 11. Deep venous thrombosis prophylaxis, heparin 5000 units subcu twice daily. 12. Gastrointestinal prophylaxis, Protonix 40 mg IV daily. 13. Code status. At this point, the patient's family member wanted to keep as a FULL CODE. We will consult Palliative Care to discuss about goal of care. Disposition and plan based on clinical course. We are expecting patient's stay in hospital more than 2 midnights. Condition critical. Prognosis guarded. Total time spent providing critical care to this patient was 35 minutes in the Emergency Room. SERG
[2017-07-04 13:15] LABS: Troponin I 0.043 ng/mL (< 0.028)
[2017-07-04 13:17] LABS: Critical Call CKMBM RESULT DECREASING
[2017-07-04] MEDS: Furosemide 40 MG/4 ML VIAL SLOW IVP SCH (13:32)
[2017-07-04 16:39] LABS: Troponin I 0.045 ng/mL (< 0.028)
[2017-07-04] MEDS: Carvedilol 3.125 MG TAB PER TUBE SCH (18:14)
[2017-07-04] MEDS: Budesonide 0.5 MG/2 ML NEB INH SCH (18:40)
[2017-07-04] MEDS: Heparin 5,000 UNITS/ML VIAL SC SCH (19:58)
[2017-07-04] MEDS ORDERED: FLU VACC TS2017-18 (>65YR) 0.5 ML SYRINGE IM ONE (21:00)
--- NOTE | 2017-07-04 21:58 | CON ---
DATE OF CONSULTATION: 07/04/2017 REASON FOR CONSULTATION: Congestive heart failure. HISTORY OF PRESENT ILLNESS: Mr. Tristan López is a 66-year-old patient of Dr. Barber Sandhu. T he patient has a long history of congestive heart failure with multiple hospitalizations. Apparently , the patient had been placed on hospice few days prior to this admission. This morning, the patient 's son found him underneath his bed. The patient was gasping for air, extreme respiratory distress, called paramedics, oxygen saturation is 85%. He was given DuoNeb therapy for wheezing, he was in res piratory distress, they brought him here. The patient was intubated by the emergency room physician per the patient's request son. It was noted that he was on hospice, but the patient's son revoked an d he wanted to be treated aggressively at this point. REVIEW OF SYSTEMS: Not obtainable. He is intubated on the ventilator. ALLERGIES: Allergy to IODINE and SHELLFISH. MEDICATIONS: 1. Aspirin. 2. Calcitriol. 3. Carvedilol. 4. Pepcid. 5. Iron. 6. Breo. 7. Lasix. 8. DuoNeb. 9. Aldactone. PAST MEDICAL HISTORY: 1. Chronic heart failure, systolic. 2. Stage IV renal insufficiency/failure. 3. Chronic obstructive pulmonary disease. PAST SURGICAL HISTORY: Previous defibrillator implantation. FAMILY HISTORY: Father of heart disease, hypertension. SOCIAL HISTORY: Previous history of smoking, quit several years ago. PHYSICAL EXAMINATION: GENERAL: This is an intubated, elderly gentleman. He is now on fentanyl, sedated. VITAL SIGNS: Blood pressure 118/70, pulse 80. EYES: Closed. He has some periorbital edema. LUNGS: Clear anterolaterally. CARDIAC: Normal S1, normal S2. I do not hear a murmur, rub, or gallop. ABDOMEN: Obese, nontender, no hepatosplenomegaly. EXTREMITIES: Warm and dry. No clubbing or cyanosis. There is a mild edema. PERTINENT LABORATORY DATA: The potassium is 5.1, creatinine is 2.56. Troponin 0.043. ASSESSMENT: 1. Recurrent respiratory failure. 2. Congestive heart failure, systolic, acute on chronic. 3. Previous defibrillator implantation. PLAN: 1. Continue intravenous diuretics. 2. Dr. Sandhu to resume care tomorrow.
[2017-07-05 05:13] LABS: Band 6 % (5-11); Hematocrit 45.4 % (42.0-52.0); Mean Platelet Volume 10.9 fL (7.4-10.4); Neutrophil 90 % (42-75); Red Blood Cell (RBC) Count 5.01 mill/uL (4.70-6.10); Target Cells SLIGHT = 2-5 cells (100X) (0-1/hpf); White Blood Cell (WBC) Count 7.5 thou/uL (4.8-10.8)
[2017-07-05] MEDS: Furosemide 40 MG/4 ML VIAL SLOW IVP SCH ×3 (05:13→14:39)
[2017-07-05 05:23] LABS: Anion Gap 16 mmol/L (10-20); BUN (Urea Nitrogen) 57 mg/dL (8.4-25.7); Calc. Creatinine Clearance 34 mL/min (70-130); Calcium 8.8 mg/dL (7.8-10.44); Carbon Dioxide 27 mmol/L (23-31); Chloride 99 mmol/L (98-107); Estimated GFR-MDRD 31
--- NOTE | 2017-07-05 05:43 | CON ---
DATE OF CONSULTATION: 07/04/2017 HISTORY OF PRESENT ILLNESS: Mr. Lópze is a 66-year-old male with severe cardiomyopathy as well as c hronic obstructive pulmonary disease. He has become very, very inactive over the last year and maybe will walk 10 feet on a good day. He was found with agonal respirations by the son. EMS was called. He was intubated. His daughters tell me that they are almost to the point where they were going to be willing to keep h im home for comfort, but he was not quite there. The son had recommended to transport to the hospital and called EMS. A hospice suggests started work ing with them from what the daughters are telling me. PAST MEDICAL HISTORY: 1. Remarkable for multiple admissions for his cardiomyopathy. 2. He has had underlying significant obstructive lung disease. His family tells me he is unable to lie down in bed. They cannot remember the last time he was lying flat in bed, and said he sits up hilary lt uprightly leaning forward all the time. 3. History of an ejection fraction of 25% to 30%. 4. History of chronic kidney disease. 5. History of chronic hypoxemic respiratory failure on home oxygen. 6. History of abdominal aortic aneurysm. 7. Hypertension. 8. Lipid disorder. 9. Weakness, deconditioning and falls. 10. Peripheral vascular disease. 11. History of AICD placement. 12. History of a neck abscess requiring surgery. 13. History of two herniorrhaphies. MEDICATIONS: Prior to this admission, he was on Dulcolax, calcitriol, Colace, iron, folate, Lasix, D uoNeb, Claritin, Dulera, nitroglycerin, and omeprazole. ALLERGIES: He reports an IODINE allergy. FAMILY HISTORY: Remarkable for vascular disease and hypertension. SOCIAL HISTORY: He is a nonsmoker, nondrinker. He has not smoked for over 20 years. REVIEW OF SYSTEMS: Otherwise not obtainable since he is intubated. PHYSICAL EXAMINATION: VITAL SIGNS: His temperature is 99, respiratory rate is 14, blood pressure 118/70, heart rate is in the 70s, and oximetry is 100%. HEENT: Pupils are sluggishly reactive. Sclerae is anicteric. NECK: Supple. LUNGS: Distant. Remarkable for diffuse mild rhonchi. HEART: Regular rhythm. ABDOMEN: Soft. EXTREMITIES: Without asymmetry. Flow volume loop on the ventilator shows a very prolonged expiratory phase. LABORATORY AND X-RAY FINDINGS: Chest radiograph is improved to compare to his last film. White coun t 6.9, hemoglobin 13, platelets 109,000. Sodium 138, potassium 5.1, chloride 99, BUN 55, creatinine 2.56 it was 3.1 at the beginning of May. IMPRESSION: Respiratory failure secondary to chronic obstructive pulmonary disease exacerbation. He is awake, this could have easily been triggered by simple cold. I met with the family and asked the m to make decisions regarding code status and the duration of mechanical ventilation. He is unlikely to survive much longer and actually this may be a terminal admission as I have explained to them. W e will treat him with nebulizer treatments, steroids, fluids, mechanical ventilation. I do not see a nything on his radiograph suggestive of pneumonia.
[2017-07-05] MEDS: Budesonide 0.5 MG/2 ML NEB INH SCH ×2 (06:12→18:10)
[2017-07-05] MEDS ORDERED: Pantoprazole 40 MG VIAL IVP SCH (09:00)
[2017-07-05] MEDS: Calcitriol 0.25 MCG CAP PO SCH (09:02)
[2017-07-05] MEDS: Carvedilol 3.125 MG TAB PER TUBE SCH ×2 (09:02→17:29)
[2017-07-05] MEDS: Folic Acid/Vit B Comp W-C PER TUBE SCH (09:02)
[2017-07-05] MEDS: Heparin 5,000 UNITS/ML VIAL SC SCH (09:03)
--- NOTE | 2017-07-05 09:40 | RAD ---
AP CHEST: History: Ventilator dependent patient. Date: 07-05-17 Comparison: 07-04-17 FINDINGS: AP chest demonstrates nasogastric tube in place. Endotracheal tube is in good position. There is a du al-lead intracardiac defibrillator. EKG leads seen over the chest. Cardiomegaly is noted. Small bilat eral pleural effusions are seen. Patchy areas of airspace opacity seen in both lung bases. IMPRESSION: No evidence of acute intrathoracic abnormalities seen. Radiographic appearance of the chest is stable and unchanged since the previous day's exam except for placement of a nasogastric tube. POS: [facility]
--- NOTE | 2017-07-05 10:21 | PRG ---
DATE OF SERVICE: 07/05/2017 SUBJECTIVE: Mr. López is currently intubated and sedated. I did speak to his son. He states he found him while at home under the bed. He is unsure how he got truly under the bed. He was having difficulty breathing. EMS was then called. Patient was recently placed on hospice on [place], but was rescinded. OBJECTIVE: VITAL SIGNS: Blood pressure 127/72, pulse 76, temperature afebrile. LUNGS: Rales and rhonchi bilaterally. CARDIAC: Regular rate and rhythm. ABDOMEN: Soft, nontender, nondistended. EXTREMITIES: No edema. GENERAL: Currently intubated and sedated. LABORATORY DATA: Hemoglobin 14.5. Creatinine 2.5. CK-MB of 7.7, troponin 0.045. IMPRESSION: 1. Respiratory failure. 2. Ischemic cardiomyopathy. 3. Acute on chronic systolic heart failure. 4. Chronic obstructive pulmonary disease. 5. Noncompliance. RECOMMENDATIONS: At this point, we will continue vent support. We will likely need to discuss [facility] aggressive versus comfort care measures. The family had opted for comfort care measures recently, but in the acute situation opted for aggressive approach. I would agree with Dr. Holbrook and his note on this potentially being a terminal admission. At this point, we will continue low-dose Coreg. Ot herwise, I have no further recommendations.
--- NOTE | 2017-07-05 11:33 | PDOC.PN ---
- Subjective Encounter Start Date: 07/05/17 Encounter Start Time: 09:30 -: old records requested/rev pt is intubated, pt is awake, follows simple command on vent, son present bedside - Objective Resuscitation Status: Resuscitation Status FULL:Full Resuscitation MAR Reviewed: Yes Vital Signs & Weight: Vital Signs (12 hours) Temp Pulse Resp BP Pulse Ox 07/05/17 10:51 75 118/70 07/05/17 10:00 16 07/05/17 09:34 76 14 100 07/05/17 09:08 80 127/73 07/05/17 08:00 99.0 F 14 07/05/17 07:31 99.0 F 75 14 100 07/05/17 06:18 75 112/64 07/05/17 06:13 100 07/05/17 06:12 77 15 100 07/05/17 06:00 14 07/05/17 04:00 99.1 F 14 07/05/17 02:54 73 14 100 07/05/17 02:00 14 07/05/17 00:00 14 07/04/17 23:58 99.1 F Weight Admit Weight 189 lb 2.506 oz Weight 182 lb 15.739 oz Most Recent Monitor Data Heart Rate from ECG 75 NIBP 107/62 NIBP BP-Mean 74 Respiration from ECG 14 SpO2 100 I&O: 07/04/17 07/05/17 07/06/17 06:59 06:59 06:59 Intake Total 94 Output Total 2600 297 Balance -2506 -297 Result Diagrams: 07/05/17 04:13 07/05/17 04:13 Radiology Reviewed by me: Yes (chest xray) EKG Reviewed by me: Yes (tachycardia) Phys Exam - Physical Examination Constitutional: NAD intubated HEENT: PERRLA, moist MMs, sclera anicteric Neck: no JVD, supple Respiratory: no wheezing, no rales, no rhonchi Cardiovascular: RRR, no significant murmur, no rub Gastrointestinal: soft, non-tender, no distention, positive bowel sounds Musculoskeletal: pulses present, edema present Neurological: moves all 4 limbs Lymphatic: no nodes Psychiatric: normal affect Skin: no rash, normal turgor Dx/Plan (1) Acute on chronic combined systolic and diastolic heart failure Code(s): I50.43 - ACUTE ON CHRONIC COMBINED SYSTOLIC AND DIASTOLIC HRT FAIL Status: Acute (2) Acute on chronic respiratory failure with hypoxia and hypercapnia Code(s): J96.21 - ACUTE AND CHRONIC RESPIRATORY FAILURE WITH HYPOXIA; J96.22 - ACUTE AND CHRONIC RESPIRATORY FAILURE WITH HYPERCAPNIA Status: Acute (3) COPD exacerbation Code(s): J44.1 - CHRONIC OBSTRUCTIVE PULMONARY DISEASE W (ACUTE) EXACERBATION Status: Acute (4) Demand ischemia Code(s): I24.8 - OTHER FORMS OF ACUTE ISCHEMIC HEART DISEASE Status: Acute (5) Lactic acidosis Code(s): E87.2 - ACIDOSIS Status: Acute (6) Anemia of renal disease Code(s): D63.1 - ANEMIA IN CHRONIC KIDNEY DISEASE Status: Chronic (7) CKD (chronic kidney disease) stage 4, GFR 15-29 ml/min Code(s): N18.4 - CHRONIC KIDNEY DISEASE, STAGE 4 (SEVERE) Status: Chronic (8) GERD (gastroesophageal reflux disease) Code(s): K21.9 - GASTRO-ESOPHAGEAL REFLUX DISEASE WITHOUT ESOPHAGITIS Status: Chronic (9) Hypertension Code(s): I10 - ESSENTIAL (PRIMARY) HYPERTENSION Status: Chronic (10) Physical deconditioning Code(s): R53.81 - OTHER MALAISE Status: Chronic (11) Secondary hyperparathyroidism of renal origin Code(s): N25.81 - SECONDARY HYPERPARATHYROIDISM OF RENAL ORIGIN Status: Chronic - Plan cont current plan of care, plan discussed w/ family, continue antibiotics, respiratory therapy * spoke with son, who states that he wanted to continue ventilator if needed for another 48 hours, then they will consider removal of ET but at that time he is not sure what is his code status after terminal extubation but he will discuss today with other family member and let us know * meanwhile he stated to continue full code status * continue vent as per pulmonary * continue empiric levaquin * continue current optimum medical therapy for COPD * cardiology and pulmonary recommendation noted * prognosis is very poor. Review of Systems - Review of Systems Other: unable to review as pt is intubated but he nodded no to pain - Medications/Allergies Allergies/Adverse Reactions: Allergies Allergy/AdvReac Type Severity Reaction Status Date / Time Fish Containing Products Allergy Intermediate Hives Verified 05/15/17 16:55 Iodine and Iodide Containing Allergy Verified 05/15/17 16:55 Produc shellfish derived Allergy Hives Verified 05/15/17 16:55 Medications: Current Medications Acetaminophen (Tylenol) 650 mg PER TUBE Q4H PRN PRN Reason: Headache/Fever or Pain Al Hydroxide/Mg Hydroxide (Maalox) 30 ml PER TUBE Q6H PRN PRN Reason: Heartburn or Indigestion Albuterol/Ipratropium (Duoneb) 3 ml NEB [id number] [facility] Last Admin: 07/05/17 09:34 Dose: 3 ml Aspirin (Aspirin Chewable) 81 mg PER TUBE DAILY [facility] Last Admin: 07/05/17 09:02 Dose: 81 mg Bisacodyl (Dulcolax) 10 mg SC Q24H PRN PRN Reason: Constipation Budesonide (Pulmicort Neb Solution) 0.5 mg INH BID-RT [facility] Last Admin: 07/05/17 06:12 Dose: 0.5 mg Calcitriol (Rocaltrol) 0.25 mcg PO DAILY [facility] Last Admin: 07/05/17 09:02 Dose: 0.25 mcg Carvedilol (Coreg) 3.125 mg PER TUBE BID-[facility] Last Admin: 07/05/17 09:02 Dose: 3.125 mg Ferrous Sulfate (Ferrous Sulfate) 300 mg PER TUBE QAM-[facility] Last Admin: 07/05/17 09:02 Dose: 300 mg Furosemide (Lasix) 40 mg SLOW IVP 0600,1400 [facility] Last Admin: 07/05/17 05:22 Dose: 40 mg Heparin Sodium (Porcine) (Heparin) 5,000 units SC BID [facility] Levofloxacin 250 mg/ Device 50 mls @ 100 mls/hr IVPB 1100 [facility] Last Admin: 07/04/17 13:32 Dose: 50 mls Fentanyl (Fentanyl Cadd) 250 mls @ 0 mls/hr IVPB INF MARCO; Titrate PRN Reason: Protocol Stop: 08/03/17 10:32 Fentanyl Citrate (Fentanyl Bolus) 250 mls @ 0 mls/hr IVPB PRN PRN; As Directed PRN Reason: Breakthrough pain Stop: 08/03/17 10:32 Loperamide HCl (Imodium) 2 mg PER TUBE PRN PRN PRN Reason: Diarrhea/Loose Stools Lorazepam (Ativan) 2 mg SLOW IVP Q2H PRN PRN Reason: Anxiety to achieve Chavez 2-3 Stop: 08/03/17 10:32 Magnesium Hydroxide (Milk Of Magnesium) 30 ml PER TUBE DAILYPRN PRN PRN Reason: Constipation Methylprednisolone Sodium Succinate (Solu-Medrol) 40 mg IVP Q6HR [facility] Last Admin: 07/05/17 05:13 Dose: 40 mg Morphine Sulfate (Morphine) 2 mg IVP Q2H PRN PRN Reason: Breakthrough pain Stop: 08/03/17 10:32 Ondansetron HCl (Zofran Odt) 4 mg PER TUBE Q6H PRN PRN Reason: Nausea/Vomiting Ondansetron HCl (Zofran) 4 mg IVP Q6H PRN PRN Reason: Nausea/Vomiting Pantoprazole Sodium (Protonix) 40 mg IVP DAILY [facility] Last Admin: 07/05/17 09:03 Dose: 40 mg Propofol (Diprivan) 1,000 mg IV INF PRN; Protocol PRN Reason: TO ACHIEVE CHAVEZ SCORE 2-3 Stop: 08/03/17 10:32 Sodium Chloride (Flush - Normal Saline) 10 ml IVF Q12HR [facility] Last Admin: 07/05/17 09:03 Dose: 10 ml Sodium Chloride (Flush - Normal Saline) 10 ml IVF PRN PRN PRN Reason: Saline Flush Last Admin: 07/05/17 09:03 Dose: 10 ml Vitamin B Complex/Vit C/Folic Acid (Nephro-Ethan Tablet) 1 tab PER TUBE DAILY [facility] Last Admin: 07/05/17 09:02 Dose: 1 tab
--- NOTE | 2017-07-05 21:49 | PRG ---
DATE OF SERVICE: 07/05/2017 SUBJECTIVE: Mr. López remains stable. He made eye contact and nodded when I asked him if he was r easonably comfortable. OBJECTIVE: VITAL SIGNS: Blood pressure 120/73, heart rate 72, respiratory rate is 14. LUNGS: Distant and clear. His long expiratory phase but this slightly improved compared to yesterda y. CARDIOVASCULAR: Regular rhythm. S1 and S2 are normal. ABDOMEN: Soft and nontender. LABORATORY DATA: White count 7.5, hemoglobin 14.5, platelets 100,000. Sodium 137, potassium 5.2, ch loride 99, bicarb 27, BUN 57, creatinine 2.5, 2.56 yesterday. Chest radiograph is unchanged. IMPRESSION: Chronic obstructive pulmonary disease exacerbation leading to respiratory failure. I me t with the son, met with the 2 daughters yesterday after I met with the son they talked and they want him to be a do not resuscitate patient. What I have proposed is that we ventilate him until and then plan on extubating him on Sunday. I suspect he will do reasonably well after extubation , but they are willing not to reintubate him.
[2017-07-05] MEDS ORDERED: Midazolam HCl 2 mg/2 ml Vial ONE (22:47)
[2017-07-06 04:31] LABS: Anion Gap 13 mmol/L (10-20); BUN (Urea Nitrogen) 64 mg/dL (8.4-25.7); Calc. Creatinine Clearance 33 mL/min (70-130); Calcium 8.9 mg/dL (7.8-10.44); Carbon Dioxide 34 mmol/L (23-31); Chloride 96 mmol/L (98-107); Estimated GFR-MDRD 30
[2017-07-06 04:32] LABS: Red Blood Cell (RBC) Count 5.04 mill/uL (4.70-6.10); White Blood Cell (WBC) Count 10.1 thou/uL (4.8-10.8)
[2017-07-06 05:06] LABS: Band 12 % (5-11); Neutrophil 85 % (42-75)
[2017-07-06] MEDS: Furosemide 40 MG/4 ML VIAL SLOW IVP SCH ×2 (05:15→14:11)
[2017-07-06] MEDS: Budesonide 0.5 MG/2 ML NEB INH SCH (07:32)
[2017-07-06 07:35] LABS: Oxyhemoglobin 89.7 % (94.0-97.0); Sodium 141 mmol/L (135-148)
[2017-07-06 07:36] LABS: Mechanical Tidal Volume 500 ml; Mode SIMV; Pressure Support 10 cmH2O; Vent YES
--- NOTE | 2017-07-06 08:13 | RAD ---
AP VIEW CHEST: HISTORY: Ventilator-dependent patient. DATE: 07/06/17. COMPARISON: Comparison is made to previous exam from 07/05/17. FINDINGS: AP view chest demonstrates nasogastric and endotracheal tubes again to be in good position. A dual-l ead intracardiac defibrillator is seen. There is blunting of the costophrenic angles bilaterally compatible with bilateral pleural effusions. Patchy areas of atelectasis or pneumonia are present in both lung bases, worse in the right than in t he left lung base. No significant interval change is seen since the previous exam. No evidence of p neumothorax is seen. IMPRESSION: Bilateral pleural effusions and patchy areas of right lung base opacities. POS: [facility]
[2017-07-06] MEDS: Pantoprazole 40 MG GRANULES PACKET PER TUBE SCH (09:03)
[2017-07-06] MEDS: Carvedilol 3.125 MG TAB PER TUBE SCH ×2 (09:03→17:00)
[2017-07-06] MEDS: Heparin 5,000 UNITS/ML VIAL SC SCH ×2 (09:04→21:02)
[2017-07-06] MEDS: Folic Acid/Vit B Comp W-C PER TUBE SCH (09:04)
--- NOTE | 2017-07-06 09:07 | PDOC.PN ---
- Subjective Encounter Start Date: 07/06/17 Encounter Start Time: 07:15 Patient seen and examined. No new complaints. No overnight events, pt is intubated, awake and follows simple command - Objective Resuscitation Status: Resuscitation Status DNR:Do Not Resuscitate MAR Reviewed: Yes Vital Signs & Weight: Vital Signs (12 hours) Temp Pulse Resp Pulse Ox 07/06/17 07:24 77 07/06/17 06:00 14 07/06/17 04:00 98.2 F 17 07/06/17 02:26 71 21 H 100 07/06/17 02:00 14 07/06/17 00:00 98.4 F 16 07/05/17 22:18 69 17 100 07/05/17 22:00 16 Weight Admit Weight 189 lb 2.506 oz Weight 178 lb 5.663 oz Most Recent Monitor Data Heart Rate from ECG 74 NIBP 114/66 NIBP BP-Mean 73 Respiration from ECG 14 SpO2 100 I&O: 07/05/17 07/06/17 07/07/17 06:59 06:59 06:59 Intake Total 94 289 Output Total 2606 4587 Balance -9350 -8210 Result Diagrams: 07/06/17 04:04 07/06/17 04:04 Radiology Reviewed by me: Yes (chest xray) EKG Reviewed by me: Yes (nsr, irregular) Phys Exam - Physical Examination Constitutional: NAD HEENT: PERRLA, moist MMs, sclera anicteric Neck: no JVD, supple Respiratory: no wheezing, no rales, no rhonchi Cardiovascular: RRR, no significant murmur, no rub Gastrointestinal: soft, non-tender, no distention, positive bowel sounds Musculoskeletal: no edema, pulses present chronic skin changes Neurological: moves all 4 limbs Lymphatic: no nodes Psychiatric: normal affect Skin: no rash, normal turgor Dx/Plan (1) Acute on chronic combined systolic and diastolic heart failure Code(s): I50.43 - ACUTE ON CHRONIC COMBINED SYSTOLIC AND DIASTOLIC HRT FAIL Status: Acute (2) Acute on chronic respiratory failure with hypoxia and hypercapnia Code(s): J96.21 - ACUTE AND CHRONIC RESPIRATORY FAILURE WITH HYPOXIA; J96.22 - ACUTE AND CHRONIC RESPIRATORY FAILURE WITH HYPERCAPNIA Status: Acute (3) COPD exacerbation Code(s): J44.1 - CHRONIC OBSTRUCTIVE PULMONARY DISEASE W (ACUTE) EXACERBATION Status: Acute (4) Demand ischemia Code(s): I24.8 - OTHER FORMS OF ACUTE ISCHEMIC HEART DISEASE Status: Acute (5) Lactic acidosis Code(s): E87.2 - ACIDOSIS Status: Acute (6) Anemia of renal disease Code(s): D63.1 - ANEMIA IN CHRONIC KIDNEY DISEASE Status: Chronic (7) CKD (chronic kidney disease) stage 4, GFR 15-29 ml/min Code(s): N18.4 - CHRONIC KIDNEY DISEASE, STAGE 4 (SEVERE) Status: Chronic (8) GERD (gastroesophageal reflux disease) Code(s): K21.9 - GASTRO-ESOPHAGEAL REFLUX DISEASE WITHOUT ESOPHAGITIS Status: Chronic (9) Hypertension Code(s): I10 - ESSENTIAL (PRIMARY) HYPERTENSION Status: Chronic (10) Physical deconditioning Code(s): R53.81 - OTHER MALAISE Status: Chronic (11) Secondary hyperparathyroidism of renal origin Code(s): N25.81 - SECONDARY HYPERPARATHYROIDISM OF RENAL ORIGIN Status: Chronic - Plan cont current plan of care, continue antibiotics, respiratory therapy * continue vent per pulmonary, * per family pt will be extubated tomorrow and does not want re intubation * continue COPD and CHF treatment as below * medication reviewed as below * symptomatic treatment. Review of Systems - Review of Systems Other: unable to review fully as pt is intubated but seems like he is comfortable and he does not have complaints - Medications/Allergies Allergies/Adverse Reactions: Allergies Allergy/AdvReac Type Severity Reaction Status Date / Time Fish Containing Products Allergy Intermediate Hives Verified 05/15/17 16:55 Iodine and Iodide Containing Allergy Verified 05/15/17 16:55 Produc shellfish derived Allergy Hives Verified 05/15/17 16:55 Medications: Current Medications Acetaminophen (Tylenol) 650 mg PER TUBE Q4H PRN PRN Reason: Headache/Fever or Pain Al Hydroxide/Mg Hydroxide (Maalox) 30 ml PER TUBE Q6H PRN PRN Reason: Heartburn or Indigestion Albuterol/Ipratropium (Duoneb) 3 ml NEB [id number] [facility] Last Admin: 07/06/17 07:04 Dose: 3 ml Aspirin (Aspirin Chewable) 81 mg PER TUBE DAILY [facility] Last Admin: 07/06/17 09:03 Dose: 81 mg Bisacodyl (Dulcolax) 10 mg UT Q24H PRN PRN Reason: Constipation Budesonide (Pulmicort Neb Solution) 0.5 mg INH BID-RT [facility] Last Admin: 07/06/17 07:32 Dose: 0.5 mg Calcitriol (Rocaltrol) 0.25 mcg PO DAILY [facility] Last Admin: 07/05/17 09:02 Dose: 0.25 mcg Carvedilol (Coreg) 3.125 mg PER TUBE BID-[facility] Last Admin: 07/06/17 09:03 Dose: 3.125 mg Ferrous Sulfate (Ferrous Sulfate) 300 mg PER TUBE QAM-[facility] Last Admin: 07/06/17 09:04 Dose: 300 mg Furosemide (Lasix) 40 mg SLOW IVP 0600,1400 [facility] Last Admin: 07/06/17 05:15 Dose: 40 mg Heparin Sodium (Porcine) (Heparin) 5,000 units SC BID [facility] Last Admin: 07/06/17 09:04 Dose: 5,000 units Levofloxacin 250 mg/ Device 50 mls @ 100 mls/hr IVPB 1100 [facility] Last Admin: 07/05/17 11:39 Dose: 50 mls Fentanyl (Fentanyl Cadd) 250 mls @ 0 mls/hr IVPB INF [facility]; Titrate PRN Reason: Protocol Stop: 08/03/17 10:32 Fentanyl Citrate (Fentanyl Bolus) 250 mls @ 0 mls/hr IVPB PRN PRN; As Directed PRN Reason: Breakthrough pain Stop: 08/03/17 10:32 Loperamide HCl (Imodium) 2 mg PER TUBE PRN PRN PRN Reason: Diarrhea/Loose Stools Lorazepam (Ativan) 2 mg SLOW IVP Q2H PRN PRN Reason: Anxiety to achieve Chavez 2-3 Stop: 08/03/17 10:32 Magnesium Hydroxide (Milk Of Magnesium) 30 ml PER TUBE DAILYPRN PRN PRN Reason: Constipation Methylprednisolone Sodium Succinate (Solu-Medrol) 40 mg IVP Q6HR [facility] Last Admin: 07/06/17 05:15 Dose: 40 mg Morphine Sulfate (Morphine) 2 mg IVP Q2H PRN PRN Reason: Breakthrough pain Stop: 08/03/17 10:32 Ondansetron HCl (Zofran Odt) 4 mg PER TUBE Q6H PRN PRN Reason: Nausea/Vomiting Ondansetron HCl (Zofran) 4 mg IVP Q6H PRN PRN Reason: Nausea/Vomiting Pantoprazole Sodium (Protonix) 40 mg PER TUBE DAILY [facility] Last Admin: 07/06/17 09:03 Dose: 40 mg Propofol (Diprivan) 1,000 mg IV INF PRN; Protocol PRN Reason: TO ACHIEVE CHAVEZ SCORE 2-3 Stop: 08/03/17 10:32 Sodium Chloride (Flush - Normal Saline) 10 ml IVF Q12HR [facility] Last Admin: 07/05/17 20:04 Dose: 10 ml Sodium Chloride (Flush - Normal Saline) 10 ml IVF PRN PRN PRN Reason: Saline Flush Last Admin: 07/05/17 09:03 Dose: 10 ml Vitamin B Complex/Vit C/Folic Acid (Nephro-Ethan Tablet) 1 tab PER TUBE DAILY [facility] Last Admin: 07/06/17 09:04 Dose: 1 tab
[2017-07-06] MEDS: Calcitriol 0.25 MCG CAP PO SCH (09:11)
[2017-07-06] MEDS ORDERED: Sterile Water 10 ML ONE (11:17)
--- NOTE | 2017-07-06 13:04 | PRG ---
DATE OF SERVICE: 07/06/2017 SERVICE: Pulmonary Medicine. INTERVAL HISTORY: The patient is doing outstanding from respiratory standpoint. He is breathing comfortably on mechanical ventilation. He does not have any sedation going at this time. That being said, he is cool, and collected. He is wide awake and breathing comfortably. He has no specific complaints. PHYSICAL EXAMINATION: VITAL SIGNS: Afebrile, pulse 74, blood pressure 113/71, respirations 18, saturation 100% on 23% FiO2. GENERAL: The patient is awake, alert, in no apparent distress. LUNGS: Excellent air entry. Dependent crackles are present. HEART: Normal rate, regular. ABDOMEN: Soft, nontender, nondistended, bowel sounds positive. MUSCULOSKELETAL: No cyanosis or clubbing. There is 2+ pitting at the sacrum. GENITOURINARY: Tovar catheter in place. NEUROLOGIC: Grossly nonfocal. LABORATORY DATA: WBC 10.1, hemoglobin 14.5, platelets 121,000. Band count is 12% with neutrophil count of 85. INR 1.4. PH 7.51, pCO2 42, pO2 56 on 30% FiO2 at that time. Creatinine 2.58 and roughly stable. BUN 64. Basic metabolic profile is otherwise unremarkable except for bicarbonate of 34. Troponin 0.045. Urinalysis is unremarkable. Influenza A and B is negative. IMAGING: Chest x-ray demonstrates bilateral pleural effusions patchy areas of right lung base opacities. It is little worsen on the right than on the left. No significant interval changes radiographically apparent. Endotracheal tube remains in good position. A 2-lead pacemaker is in position. Enteric catheter is present, but I cannot see the tip of it. ASSESSMENT: 1. Acute hypoxic respiratory failure. 2. Acute on chronic systolic heart failure. 3. Chronic obstructive pulmonary disease with acute exacerbation. PLAN: The patient remains a DNI/DNR. I put in on a spontaneous breathing trial. If he does extraordinarily well with it, I really do not having any reason to leave him intubated. As such, extubation will be considered today. We will continue diuresing him. I will decrease her interval after today to once daily regimen. I will back off on steroids. Otherwise, supportive care including antibiotics, nebulized medications will be continued. Critical care time: 30 minutes. [facility]
[2017-07-06 13:51] VITALS: BMI 28.8
[2017-07-07 05:30] LABS: Anion Gap 14 mmol/L (10-20); BUN (Urea Nitrogen) 73 mg/dL (8.4-25.7); Calc. Creatinine Clearance 28 mL/min (70-130); Calcium 8.9 mg/dL (7.8-10.44); Carbon Dioxide 35 mmol/L (23-31); Chloride 94 mmol/L (98-107); Estimated GFR-MDRD 26
[2017-07-07 05:58] LABS: Anisocytosis SLIGHT = 6-15 cells (100X) (0-5/hpf); Band 2 % (5-11); Hematocrit 43.9 % (42.0-52.0); Hypochromia SLIGHT = 6-15 cells (100X) (0-5/hpf); Mean Platelet Volume 10.2 fL (7.4-10.4); Neutrophil 90 % (42-75); Red Blood Cell (RBC) Count 4.74 mill/uL (4.70-6.10); Target Cells SLIGHT = 2-5 cells (100X) (0-1/hpf); White Blood Cell (WBC) Count 11.6 thou/uL (4.8-10.8)
[2017-07-07] MEDS: Furosemide 40 MG/4 ML VIAL SLOW IVP SCH ×2 (06:22→14:07)
--- NOTE | 2017-07-07 09:01 | PDOC.PN ---
- Subjective Encounter Start Date: 07/07/17 Encounter Start Time: 07:20 pt was extubated yesterday and overnight did well, pt is fully oriented and he changed his code status again to full code - Objective Resuscitation Status: Resuscitation Status FULL:Full Resuscitation MAR Reviewed: Yes Vital Signs & Weight: Vital Signs (12 hours) Temp Pulse Resp BP Pulse Ox 07/07/17 07:28 96.8 F L 75 18 123/75 95 07/07/17 04:00 98.6 F 07/07/17 03:16 74 16 100 07/06/17 23:54 98.8 F 07/06/17 22:18 81 16 98 Weight Admit Weight 189 lb 2.506 oz Weight 180 lb 12.465 oz Most Recent Monitor Data Heart Rate from ECG 78 NIBP 118/77 NIBP BP-Mean 86 Respiration from ECG 20 SpO2 92 I&O: 07/06/17 07/07/17 07/08/17 06:59 06:59 06:59 Intake Total 289 1918.8 Output Total 1619 1980 Balance -1330 -61.2 Result Diagrams: 07/07/17 04:11 07/07/17 04:11 EKG Reviewed by me: Yes (NSR) Phys Exam - Physical Examination Constitutional: NAD HEENT: PERRLA, moist MMs, sclera anicteric puffyness of eyelid Neck: no JVD, supple Respiratory: no wheezing, no rales, no rhonchi reduced air entry Cardiovascular: RRR, no significant murmur, no rub Gastrointestinal: soft, non-tender, no distention, positive bowel sounds Musculoskeletal: no edema, pulses present chronic skin changes Neurological: non-focal, normal sensation Lymphatic: no nodes Psychiatric: normal affect, A&O x 3 Skin: no rash, normal turgor Dx/Plan (1) Acute on chronic combined systolic and diastolic heart failure Code(s): I50.43 - ACUTE ON CHRONIC COMBINED SYSTOLIC AND DIASTOLIC HRT FAIL Status: Acute (2) Acute on chronic respiratory failure with hypoxia and hypercapnia Code(s): J96.21 - ACUTE AND CHRONIC RESPIRATORY FAILURE WITH HYPOXIA; J96.22 - ACUTE AND CHRONIC RESPIRATORY FAILURE WITH HYPERCAPNIA Status: Acute (3) COPD exacerbation Code(s): J44.1 - CHRONIC OBSTRUCTIVE PULMONARY DISEASE W (ACUTE) EXACERBATION Status: Acute (4) Demand ischemia Code(s): I24.8 - OTHER FORMS OF ACUTE ISCHEMIC HEART DISEASE Status: Acute (5) Lactic acidosis Code(s): E87.2 - ACIDOSIS Status: Resolved (6) Anemia of renal disease Code(s): D63.1 - ANEMIA IN CHRONIC KIDNEY DISEASE Status: Chronic (7) CKD (chronic kidney disease) stage 4, GFR 15-29 ml/min Code(s): N18.4 - CHRONIC KIDNEY DISEASE, STAGE 4 (SEVERE) Status: Chronic (8) GERD (gastroesophageal reflux disease) Code(s): K21.9 - GASTRO-ESOPHAGEAL REFLUX DISEASE WITHOUT ESOPHAGITIS Status: Chronic (9) Hypertension Code(s): I10 - ESSENTIAL (PRIMARY) HYPERTENSION Status: Chronic (10) Physical deconditioning Code(s): R53.81 - OTHER MALAISE Status: Chronic (11) Secondary hyperparathyroidism of renal origin Code(s): N25.81 - SECONDARY HYPERPARATHYROIDISM OF RENAL ORIGIN Status: Chronic - Plan cont current plan of care, continue antibiotics, PT/OT, respiratory therapy * change medication via PO * transfer to tele * start PT * repeat labs tomorrow * continue levaquin * continue solumedrol * continue respiratory therapy * medication reviewed as below * symptomatic treatment. Review of Systems - Review of Systems ENT: negative: Ear Pain, Ear Discharge, Nose Pain, Nose Discharge, Nose Congestion, Mouth Pain, Mouth Swelling, Throat Pain, Throat Swelling, Other Respiratory: negative: Cough, Dry, Shortness of Breath, Hemoptysis, SOB with Excertion, Pleuritic Pain, Sputum, Wheezing Cardiovascular: negative: Chest Pain, Palpitations, Orthopnea, Paroxysmal Noc. Dyspnea, Edema, Light Headedness, Other Gastrointestinal: negative: Nausea, Vomiting, Abdominal Pain, Diarrhea, Constipation, Melena, Hematochezia, Other Genitourinary: negative: Dysuria, Frequency, Incontinence, Hematuria, Retention , Other Musculoskeletal: negative: Neck Pain, Shoulder Pain, Arm Pain, Back Pain, Hand Pain, Leg Pain, Foot Pain, Other - Medications/Allergies Allergies/Adverse Reactions: Allergies Allergy/AdvReac Type Severity Reaction Status Date / Time Fish Containing Products Allergy Intermediate Hives Verified 05/15/17 16:55 Iodine and Iodide Containing Allergy Verified 05/15/17 16:55 Produc shellfish derived Allergy Hives Verified 05/15/17 16:55 Medications: Current Medications Acetaminophen (Tylenol) 650 mg PER TUBE Q4H PRN PRN Reason: Headache/Fever or Pain Al Hydroxide/Mg Hydroxide (Maalox) 30 ml PER TUBE Q6H PRN PRN Reason: Heartburn or Indigestion Albuterol/Ipratropium (Duoneb) 3 ml NEB [id number] Last Admin: 07/07/17 08:06 Dose: Not Given Aspirin (Aspirin Chewable) 81 mg PER TUBE DAILY [facility] Last Admin: 07/06/17 09:03 Dose: 81 mg Bisacodyl (Dulcolax) 10 mg [place] Q24H PRN PRN Reason: Constipation Calcitriol (Rocaltrol) 0.25 mcg PO DAILY [facility] Last Admin: 07/06/17 09:11 Dose: 0.25 mcg Carvedilol (Coreg) 3.125 mg PER TUBE BID-[facility] Last Admin: 07/06/17 17:00 Dose: 3.125 mg Ferrous Sulfate (Ferrous Sulfate) 300 mg PER TUBE QAM-[facility] Last Admin: 07/06/17 09:04 Dose: 300 mg Furosemide (Lasix) 40 mg SLOW IVP 0600,1400 [facility] Last Admin: 07/07/17 06:22 Dose: 40 mg Heparin Sodium (Porcine) (Heparin) 5,000 units SC BID [facility] Last Admin: 07/06/17 21:02 Dose: Not Given Levofloxacin 250 mg/ Device 50 mls @ 100 mls/hr IVPB 1100 [facility] Last Admin: 07/06/17 11:35 Dose: 50 mls Loperamide HCl (Imodium) 2 mg PER TUBE PRN PRN PRN Reason: Diarrhea/Loose Stools Magnesium Hydroxide (Milk Of Magnesium) 30 ml PER TUBE DAILYPRN PRN PRN Reason: Constipation Methylprednisolone Sodium Succinate (Solu-Medrol) 40 mg IVP DAILY [facility] Ondansetron HCl (Zofran Odt) 4 mg PER TUBE Q6H PRN PRN Reason: Nausea/Vomiting Ondansetron HCl (Zofran) 4 mg IVP Q6H PRN PRN Reason: Nausea/Vomiting Pantoprazole Sodium (Protonix) 40 mg PER TUBE DAILY [facility] Last Admin: 07/06/17 09:03 Dose: 40 mg Sodium Chloride (Flush - Normal Saline) 10 ml IVF Q12HR [facility] Last Admin: 07/06/17 21:02 Dose: 10 ml Sodium Chloride (Flush - Normal Saline) 10 ml IVF PRN PRN PRN Reason: Saline Flush Last Admin: 07/05/17 09:03 Dose: 10 ml Vitamin B Complex/Vit C/Folic Acid (Nephro-Ethan Tablet) 1 tab PER TUBE DAILY [facility] Last Admin: 07/06/17 09:04 Dose: 1 tab
[2017-07-07] MEDS ORDERED: Chloraseptic Spray 180 ml Bottle PO PRN (09:02)
[2017-07-07] MEDS ORDERED: Nitroglycerin 0.4 MG TAB (25 Tab Bottle) SL PRN (09:02)
[2017-07-07] MEDS ORDERED: Ondansetron ODT 4 MG TAB PO PRN (09:02)
[2017-07-07] MEDS ORDERED: hydrALAZINE 20 MG/ML VIAL SLOW IVP PRN (09:02)
[2017-07-07] MEDS ORDERED: Loratadine 10 MG TAB PO PRN (09:02)
[2017-07-07] MEDS ORDERED: Acetaminophen 325 MG TAB PO PRN (09:02)
[2017-07-07] MEDS ORDERED: Artificial Tears 18 DROP/0.9 ML EA EYE PRN (09:02)
[2017-07-07] MEDS ORDERED: Milk Of Magnesia 30 ML UDCUP PO PRN (09:02)
[2017-07-07] MEDS ORDERED: Loperamide HCl 2 MG CAP PO PRN (09:02)
[2017-07-07] MEDS ORDERED: Labetalol HCl 100 MG/20 ML VIAL SLOW IVP PRN (09:02)
[2017-07-07] MEDS ORDERED: Eucerin (Mineral Oil/Petrolatum,White) 30 gm Jar TOP PRN (09:02)
[2017-07-07] MEDS ORDERED: Sodium Chloride 0.65% Nasal 44 ML BOT EA NARE PRN (09:02)
[2017-07-07] MEDS ORDERED: Benzonatate 100 MG CAP PO PRN (09:02)
[2017-07-07] MEDS ORDERED: Diabetic Tussin 200 MG/10 ML UDCUP PO PRN (09:02)
[2017-07-07] MEDS ORDERED: Mag-Al 1200 mg/1200 mg/30 ML UDCUP PO PRN (09:02)
[2017-07-07] MEDS ORDERED: Senokot 8.6 MG TAB PO PRN (09:02)
[2017-07-07] MEDS: Calcitriol 0.25 MCG CAP PO SCH (09:09)
[2017-07-07] MEDS: Folic Acid/Vit B Comp W-C PER TUBE SCH (09:10)
[2017-07-07] MEDS: Heparin 5,000 UNITS/ML VIAL SC SCH ×2 (09:11→21:46)
--- NOTE | 2017-07-07 15:36 | EKG ---
Test Reason : Blood Pressure : / mmHG Vent. Rate : 077 BPM Atrial Rate : 085 BPM P-R Int : 138 ms QRS Dur : 090 ms QT Int : 410 ms P-R-T Axes : 034 -10 100 degrees QTc Int : 463 ms Electronic atrial pacemaker Low voltage QRS Cannot rule out Anterior infarct , age undetermined Abnormal ECG Confirmed by SHANTI JHA D.O. ([id number]), story editor LATESHA BORGES ([id number] on 07/07/2017 3:35:56 PM Referred By: Confirmed By:SHANTI JHA D.O.
[2017-07-07] MEDS: Carvedilol 3.125 MG TAB PO SCH (17:19)
--- NOTE | 2017-07-07 23:03 | PRG ---
DATE OF SERVICE: 07/07/2017 SERVICE: Pulmonary Medicine. INTERVAL HISTORY: The patient is doing really quite well from a respiratory standpoint. He is sitti ng comfortably on the side of the bed. There is no dyspnea. Otherwise, he is returning to his usual state of health. PHYSICAL EXAMINATION: VITAL SIGNS: Afebrile, pulse 82, blood pressure 122/68, respirations 16, saturation 98% on 2 liters nasal cannula. GENERAL: Patient is awake, alert, in no apparent distress. LUNGS: Decent air entry. Dependent crackles are minimal. There is no prolonged expiratory phase or wheezing. HEART: Normal rate, regular. ABDOMEN: Soft, nontender, nondistended. Bowel sounds positive. MUSCULOSKELETAL: No cyanosis or clubbing. No pitting in the bilateral lower extremities. NEUROLOGIC: Grossly nonfocal. LABORATORY DATA: WBC 11.6, hemoglobin 13.5, platelets 97,000. Neutrophils are 90% and the band coun t is dropping to 2%. INR 1.4. Creatinine 2.94. BUN 73. Bicarbonate 35, sodium 139. Lactate 2.6 a nd roughly stable. Influenza A and B was previously unremarkable. ASSESSMENT: 1. Acute hypoxic respiratory failure. 2. Acute on chronic systolic heart failure. 3. Chronic obstructive pulmonary disease with acute exacerbation. PLAN: The patient is really doing quite well. I do think that he is intravascularly, he is dry. We will back off on his interval of Lasix. Overall, the patient is doing really quite well. Supportiv e care will be continued including antibiotics, steroids, and nebulized medications.
[2017-07-08 06:17] LABS: #Lymphocytes 0.8 thou/uL (1.20-3.40); #Monocytes 0.8 thou/uL (0.11-0.59); #Neutrophils 7.8 thou/uL (1.40-6.50); %Basophils 0.2 % (0.0-1.0); %Eosinophils 0.3 % (0.0-10.0); %Monocytes 8.7 % (0.0-10.0); Hematocrit 42.2 % (42.0-52.0); Mean Platelet Volume 10.4 fL (7.4-10.4); Red Blood Cell (RBC) Count 4.55 mill/uL (4.70-6.10); White Blood Cell (WBC) Count 9.4 thou/uL (4.8-10.8)
[2017-07-08 06:23] LABS: Anion Gap 13 mmol/L (10-20); BUN (Urea Nitrogen) 67 mg/dL (8.4-25.7); Calc. Creatinine Clearance 31 mL/min (70-130); Calcium 8.7 mg/dL (7.8-10.44); Carbon Dioxide 34 mmol/L (23-31); Chloride 93 mmol/L (98-107); Estimated GFR-MDRD 29; Phosphorus 3.2 mg/dL (2.3-4.7)
--- NOTE | 2017-07-08 08:06 | PDOC.PN ---
- Subjective Encounter Start Date: 07/08/17 Encounter Start Time: 08:00 pt is doing well, no fever, no cough, no dyspnea Patient seen and examined. No new complaints. No overnight events - Objective Resuscitation Status: Resuscitation Status FULL:Full Resuscitation MAR Reviewed: Yes Vital Signs & Weight: Vital Signs (12 hours) Temp Pulse Resp BP Pulse Ox 07/08/17 04:00 98.0 F 70 18 117/70 95 07/08/17 00:00 98.9 F 74 18 116/72 94 L 07/07/17 20:43 99.1 F 77 16 93 L Weight Admit Weight 189 lb 2.506 oz Weight 181 lb 6.4 oz Most Recent Monitor Data Heart Rate from ECG 79 NIBP 114/80 NIBP BP-Mean 88 Respiration from ECG 22 SpO2 93 I&O: 07/07/17 07/08/17 07/09/17 06:59 06:59 06:59 Intake Total 1918.8 1908 Output Total 1980 3000 Balance -61.2 -1092 Result Diagrams: 07/08/17 05:34 07/08/17 05:34 EKG Reviewed by me: Yes (nsr) Phys Exam - Physical Examination Constitutional: NAD HEENT: PERRLA, moist MMs Neck: no JVD, supple Respiratory: no wheezing, no rales, no rhonchi Cardiovascular: RRR, no significant murmur, no rub Gastrointestinal: soft, non-tender, no distention, positive bowel sounds Musculoskeletal: no edema, pulses present Neurological: non-focal, normal sensation Lymphatic: no nodes Psychiatric: normal affect Skin: no rash, normal turgor Dx/Plan (1) Acute on chronic combined systolic and diastolic heart failure Code(s): I50.43 - ACUTE ON CHRONIC COMBINED SYSTOLIC AND DIASTOLIC HRT FAIL Status: Acute (2) Acute on chronic respiratory failure with hypoxia and hypercapnia Code(s): J96.21 - ACUTE AND CHRONIC RESPIRATORY FAILURE WITH HYPOXIA; J96.22 - ACUTE AND CHRONIC RESPIRATORY FAILURE WITH HYPERCAPNIA Status: Acute (3) COPD exacerbation Code(s): J44.1 - CHRONIC OBSTRUCTIVE PULMONARY DISEASE W (ACUTE) EXACERBATION Status: Acute (4) Demand ischemia Code(s): I24.8 - OTHER FORMS OF ACUTE ISCHEMIC HEART DISEASE Status: Acute (5) Lactic acidosis Code(s): E87.2 - ACIDOSIS Status: Resolved (6) Anemia of renal disease Code(s): D63.1 - ANEMIA IN CHRONIC KIDNEY DISEASE Status: Chronic (7) CKD (chronic kidney disease) stage 4, GFR 15-29 ml/min Code(s): N18.4 - CHRONIC KIDNEY DISEASE, STAGE 4 (SEVERE) Status: Chronic (8) GERD (gastroesophageal reflux disease) Code(s): K21.9 - GASTRO-ESOPHAGEAL REFLUX DISEASE WITHOUT ESOPHAGITIS Status: Chronic (9) Hypertension Code(s): I10 - ESSENTIAL (PRIMARY) HYPERTENSION Status: Chronic (10) Physical deconditioning Code(s): R53.81 - OTHER MALAISE Status: Chronic (11) Secondary hyperparathyroidism of renal origin Code(s): N25.81 - SECONDARY HYPERPARATHYROIDISM OF RENAL ORIGIN Status: Chronic (12) Thrombocytopenia Code(s): D69.6 - THROMBOCYTOPENIA, UNSPECIFIED Status: Acute - Plan cont current plan of care, continue antibiotics * continue levaquin * continue oral lasix * continue respiratory therapy * continue PT today * will adjust meds today * tomorrow will plan for discharge * medication reviewed as below * symptomatic treatment. * will dc heparin for thrombocytopenia Review of Systems - Review of Systems Eyes: negative: Pain, Vision Change, Conjunctivae Inflammation, Eyelid Inflammation, Redness, Other ENT: negative: Ear Pain, Ear Discharge, Nose Pain, Nose Discharge, Nose Congestion, Mouth Pain, Mouth Swelling, Throat Pain, Throat Swelling, Other Respiratory: negative: Cough, Dry, Shortness of Breath, Hemoptysis, SOB with Excertion, Pleuritic Pain, Sputum, Wheezing Cardiovascular: negative: Chest Pain, Palpitations, Orthopnea, Paroxysmal Noc. Dyspnea, Edema, Light Headedness, Other Gastrointestinal: negative: Nausea, Vomiting, Abdominal Pain, Diarrhea, Constipation, Melena, Hematochezia, Other Genitourinary: negative: Dysuria, Frequency, Incontinence, Hematuria, Retention , Other Musculoskeletal: negative: Neck Pain, Shoulder Pain, Arm Pain, Back Pain, Hand Pain, Leg Pain, Foot Pain, Other Skin: negative: Rash, Lesions, Jeronimo, Bruising, Other - Medications/Allergies Allergies/Adverse Reactions: Allergies Allergy/AdvReac Type Severity Reaction Status Date / Time Fish Containing Products Allergy Intermediate Hives Verified 05/15/17 16:55 Iodine and Iodide Containing Allergy Verified 05/15/17 16:55 Produc shellfish derived Allergy Hives Verified 05/15/17 16:55 Medications: Current Medications Acetaminophen (Tylenol) 650 mg PO Q4H PRN PRN Reason: Headache/Fever or Mild Pain Al Hydroxide/Mg Hydroxide (Maalox) 15 ml PO Q4H PRN PRN Reason: Heartburn or Indigestion Albuterol/Ipratropium (Duoneb) 3 ml NEB [id number] Last Admin: 07/08/17 07:12 Dose: Not Given Artificial Tears (Tears Naturale) 0 drop EA EYE PRN PRN PRN Reason: Dry Eyes Aspirin (Aspirin Chewable) 81 mg PO DAILY [facility] Benzonatate (Tessalon) 100 mg PO Q4H PRN PRN Reason: Cough Bisacodyl (Dulcolax) 10 mg NC Q24H PRN PRN Reason: Constipation Calcitriol (Rocaltrol) 0.25 mcg PO DAILY [facility] Last Admin: 07/07/17 09:09 Dose: 0.25 mcg Carvedilol (Coreg) 3.125 mg PO BID-[facility] Last Admin: 07/07/17 17:19 Dose: 3.125 mg Famotidine (Pepcid) 20 mg PO DAILY [facility] Ferrous Sulfate (Feosol) 325 mg PO QAM-[facility] Furosemide (Lasix) 40 mg SLOW IVP 0900 [facility] Guaifenesin (Robitussin Sf) 200 mg PO Q4H PRN PRN Reason: Cough Heparin Sodium (Porcine) (Heparin) 5,000 units SC BID [facility] Last Admin: 07/07/17 21:46 Dose: 5,000 units Hydralazine HCl (Apresoline) 10 mg SLOW IVP Q4H PRN PRN Reason: Systolic BP > 180 Levofloxacin 250 mg/ Device 50 mls @ 100 mls/hr IVPB 1100 [facility] Last Admin: 07/07/17 12:10 Dose: 50 mls Labetalol HCl (Normodyne) 20 mg SLOW IVP Q4H PRN PRN Reason: Systolic BP > 180 Loperamide HCl (Imodium) 2 mg PO PRN PRN PRN Reason: Diarrhea/Loose Stools Loratadine (Claritin) 10 mg PO DAILYPRN PRN PRN Reason: Sinus Symptoms Magnesium Hydroxide (Milk Of Magnesium) 30 ml PO DAILYPRN PRN PRN Reason: Constipation Mineral Oil/White Petrolatum (Eucerin Cream) 0 gm TOP BIDPRN PRN PRN Reason: Dry Skin Nitroglycerin (Nitrostat) 0.4 mg SL Q5MIN PRN PRN Reason: Chest Pain Ondansetron HCl (Zofran) 4 mg IVP Q6H PRN PRN Reason: Nausea/Vomiting Ondansetron HCl (Zofran Odt) 4 mg PO Q6H PRN PRN Reason: Nausea/Vomiting Phenol (Chloraseptic Husser 180 Ml Bot) 0 ml PO PRN PRN PRN Reason: Sore Throat Prednisone (Prednisone) 40 mg PO QA-[facility] Stop: 07/11/17 08:01 Senna (Senokot) 2 tab PO HSPRN PRN PRN Reason: Constipation Sodium Chloride (Flush - Normal Saline) 10 ml IVF Q12HR [facility] Last Admin: 07/07/17 21:46 Dose: 10 ml Sodium Chloride (Flush - Normal Saline) 10 ml IVF PRN PRN PRN Reason: Saline Flush Last Admin: 07/05/17 09:03 Dose: 10 ml Sodium Chloride ([place] Nasal Husser 0.65%) 0 ml EA NARE QIDPRN PRN PRN Reason: Nasal Congestion Vitamin B Complex/Vit C/Folic Acid (Nephro-Ethan Tablet) 1 tab PER TUBE DAILY [facility] Last Admin: 07/07/17 09:10 Dose: 1 tab
[2017-07-08] MEDS: Ferrous Sulfate 325 MG TAB PO SCH (08:38)
[2017-07-08] MEDS: Calcitriol 0.25 MCG CAP PO SCH (08:38)
[2017-07-08] MEDS: predniSONE 20 MG TAB PO SCH (08:38)
[2017-07-08] MEDS: Carvedilol 3.125 MG TAB PO SCH ×2 (08:39→16:31)
[2017-07-08] MEDS: Famotidine 20 MG TAB PO SCH (08:39)
[2017-07-08] MEDS: Furosemide 40 MG/4 ML VIAL SLOW IVP SCH (08:40)
[2017-07-08] MEDS: Folic Acid/Vit B Comp W-C PER TUBE SCH (08:40)
[2017-07-08] MEDS: Pantoprazole 40 MG GRANULES PACKET PER TUBE SCH (12:24)
[2017-07-08] MEDS: Carvedilol 3.125 MG TAB PER TUBE SCH (12:24)
--- NOTE | 2017-07-08 22:21 | PRG ---
DATE OF SERVICE: 07/08/2017 SERVICE: Pulmonary Medicine. INTERVAL HISTORY: The patient is doing great from a respiratory standpoint. He denies any shortness of breath or chest discomfort. His lower extremity swelling is much improved. Otherwise, there has been no interval change in his condition. PHYSICAL EXAMINATION: VITAL SIGNS: Afebrile, pulse 72, blood pressure 111/67, respirations 17, saturation 98% on 2 liters nasal cannula. GENERAL: The patient is awake, alert, in no apparent distress. LUNGS: Excellent air entry. No prolonged expiratory phase, wheezing, rhonchi, or crackles. HEART: Normal rate, regular. ABDOMEN: Soft, nontender, nondistended. Bowel sounds positive. MUSCULOSKELETAL: No cyanosis or clubbing. There is 1+ pitting in the bilateral lower extremities. NEUROLOGIC: Grossly nonfocal. LABORATORY DATA: WBC 9.4, hemoglobin 12.8, platelets 85,000 and roughly stable compared to yesterday . Creatinine 2.68 and gently down trending. Basic metabolic profile is otherwise unremarkable. ASSESSMENT: 1. Acute hypoxic respiratory failure. 2. Acute on chronic systolic heart failure. 3. Chronic obstructive pulmonary disease with acute exacerbation. PLAN: The patient is doing extraordinarily well. We will give him Lasix holiday for a day or two, b ut he still volume overload and could probably use some in a couple of days. That being said, suppor tive care including antibiotics, steroids, and nebulized medications will be continued. From a purel y respiratory perspective, the patient is stable for transition out of the hospital. He does not hav e oxygen at home and so home evaluation may need to be done.
[2017-07-09] MEDS: Ferrous Sulfate 325 MG TAB PO SCH (09:30)
[2017-07-09] MEDS: predniSONE 20 MG TAB PO SCH (09:30)
[2017-07-09] MEDS: Famotidine 20 MG TAB PO SCH (09:30)
[2017-07-09] MEDS: Carvedilol 3.125 MG TAB PO SCH (09:30)
[2017-07-09] MEDS: Calcitriol 0.25 MCG CAP PO SCH (09:30)
[2017-07-09] MEDS: Folic Acid/Vit B Comp W-C PER TUBE SCH (09:31)
[2017-07-09] MEDS: Furosemide 40 MG/4 ML VIAL SLOW IVP SCH (09:31)
--- NOTE | 2017-07-09 12:46 | PDOC.EVN ---
Event Note - Event Note Event Note: Patient seen and examined. No new complaints. No overnight events pt decided to go with hospice, so now we are going to send home with home hospice once arranged see discharge syd
--- NOTE | 2017-07-09 12:48 | DIS ---
DATE OF ADMISSION: 07/04/2017 DATE OF DISCHARGE: 07/09/2017 PRIMARY CARE PHYSICIAN: Cecilia Nguyen M.D. DISCHARGE DISPOSITION: Home with home oxygen. PRIMARY DISCHARGE DIAGNOSES: 1. Acute on chronic respiratory failure with hypoxia and hypercapnia. 2. Acute on chronic combined systolic and diastolic heart failure exacerbation. 3. Chronic obstructive pulmonary disease exacerbation. 4. Demand ischemia of myocardium. 5. Thrombocytopenia. 6. Lactic acidosis. SECONDARY DISCHARGE DIAGNOSES: Secondary hyperparathyroidism of renal origin, chronic physical decon ditioning, hypertension, chronic kidney disease stage IV, gastroesophageal reflux disease, anemia of renal disease, chronic systolic heart failure, and chronic respiratory failure. PRIMARY PROCEDURE/OPERATION: Endotracheal intubation and mechanical ventilatory support. RADIOLOGICAL INVESTIGATION: Chest x-ray on admission showed left-sided AICD in place, chronic change s in the lungs, small pleural effusion. The patient had chest x-ray daily basis when he was intubate d. SIGNIFICANT LABORATORY DATA: WBC 9.4, hemoglobin 12.8, platelet 85. INR 1.4. Sodium 136, potassium 4.0, BUN 67, creatinine 2.68, calcium 8.7, phosphorus 3.2, albumin 2.9, lactic acid 1.8. Urinalysis normal. Influenza negative. DISCHARGE MEDICATIONS: Aspirin 81 mg p.o. daily, calcitriol 0.5 mcg p.o. daily, Coreg 3.125 mg p.o. b.i.d., Colace 100 mg p.o. daily, ferrous sulfate 325 mg p.o. daily, Breo Ellipta 1 inhalation daily, Nephro-Ethan 1 tablet p.o. daily, Lasix 40 mg p.o. daily, DuoNeb q.6 hourly and as needed, Levaquin 250 mg p.o. daily, Claritin 10 mg p.o. daily p.r.n., nitroglycerin 0.4 mg sublingual p.r.n., omeprazo le 20 mg p.o. daily, prednisone 20 mg p.o. daily for 5 days, then 10 mg p.o. daily for 5 days, then 5 mg p.o. daily for 5 days, then stop. CONTRAINDICATIONS: The patient is not on CLEO inhibitor and ARB in view of chronic systolic and diast olic heart failure because of renal failure and risk of hyperkalemia and that is why contraindicated and this patient is not tolerating any hydralazine mononitrate regimen because of relatively low bloo d pressure. CODE STATUS: FULL CODE. INPATIENT CONSULTANTS: Dr. Holbrook and Dr. Duff were following while in hospital. TEST RESULTS PENDING ON DISCHARGE: None. ALLERGIES: FISH CONTAINING PRODUCTS, IODINE CONTAINING PRODUCTS, SHELLFISH. DISCHARGE PLAN: Post hospital, patient will follow up with primary care physician in Heart Failure Vicente taylor on 07/18/2017 at 1:40 p.m. HOSPITAL COURSE: A 66-year-old male who was previously discharged to home with home hospice for his terminal COPD and CHF. This patient was having acute respiratory distress at home and patient was fo und underneath of his bed. Patient's son was worried about and he revoked hospice and patient was br ought to ER. The patient was intubated for his respiratory distress and subsequently he was admitted in ICU. Patient was admitted for COPD and CHF exacerbation. He had acute on chronic respiratory fa ilure. After admission, [facility] was managing ventilator. The patient was initially made DNR by Dr. Holbrook, but subsequently when patient was extubated, patient was fully oriented and patient made himse lf FULL CODE and that is why code status was changed to FULL CODE and patient did not change his mind since then and he was discharged home with FULL CODE STATUS. After extubation, patient was doing well. He was transferred to the telemetry floor where we continu ed with oral medication. He had lactic acidosis and we gave him levofloxacin while in hospital. On discharge, we prescribed another Levaquin therapy for 5 more days. On discharge, we prescribed taper ing doses of prednisone. Now, patient will resume his Lasix as well orally. While in hospital, we g ave him IV Lasix, but now he will get oral Lasix. The patient is seen and examined at bedside today. Patient's family member reported that he ran out of his oxygen and that is why with the help of lining caser, we are again arranging oxygen if he is s till qualifying for home oxygen therapy. Review of systems reviewed with him and negative. PHYSICAL EXAMINATION: VITAL SIGNS: Today, temperature 98.2, pulse 71, respiratory rate 18, saturation 93% on 2 liters, blo od pressure 99/55, weight 178 pounds. GENERAL: The patient is currently alert, awake, no obvious acute distress. HEENT: Normocephalic, atraumatic. LUNGS: Clear to auscultation without any rhonchi or rales. CARDIAC: S1 and S2 regular without any murmur. ABDOMEN: Soft and benign without any tenderness. EXTREMITIES: No edema. NEUROLOGIC: Neurologically, grossly nonfocal examination. Plan of care discussed with the family member. The patient is not on CLEO inhibitor and ARB because of renal failure and risk of hyperkalemia and con traindicated and patient is not tolerating hydralazine mononitrate regimen as well. Total time spent on discharge day 31 minutes.
--- NOTE | 2017-07-09 13:55 | PRG ---
DATE OF SERVICE: 07/09/2017 PHYSICAL EXAMINATION: VITAL SIGNS: Ms. López is afebrile, heart rate 71, respiratory rate 18, oximetry is 93% on 2 liter s, and blood pressure 99/55. LUNGS: Clear. HEART: Regular rhythm. ABDOMEN: Soft. IMPRESSION: 1. Chronic obstructive pulmonary disease exacerbation. 2. Chronic systolic heart failure. PLAN: Continue current care. Discharge planning as per the hospitalist.
[2017-07-09 16:00] VITALS: BP 102/59; TEMP 98.4
== END 2017-07-09 15:52 | disposition hospice, home (50) | DRG 208 ==
LOC: ERS 06:22 → CCU 08:45 → 2NO 07-07 07:29
PROVIDERS: ADMIT Internal Medicine; ATTEND Internal Medicine
PROC: 0BH17EZ Insertion of Endotracheal Airway into Trachea, Via Natural or Artificial Opening (ICD-10-PCS; principal; 2017-07-04)
PROC: 5A1945Z Respiratory Ventilation, 24-96 Consecutive Hours (ICD-10-PCS; 2017-07-04)
DX: J96.21 Acute and chronic respiratory failure with hypoxia (principal); I50.43 Acute on chronic combined systolic (congestive) and diastolic (congestive) heart failure; E87.2 Acidosis; J44.1 Chronic obstructive pulmonary disease with (acute) exacerbation; N18.4 Chronic kidney disease, stage 4 (severe); I24.8 Other forms of acute ischemic heart disease; D69.6 Thrombocytopenia, unspecified; Z99.81 Dependence on supplemental oxygen; N25.81 Secondary hyperparathyroidism of renal origin; I13.0 Hypertensive heart and chronic kidney disease with heart failure and stage 1 through stage 4 chronic kidney disease, or unspecified chronic kidney disease; J96.22 Acute and chronic respiratory failure with hypercapnia; K21.9 Gastro-esophageal reflux disease without esophagitis; D63.1 Anemia in chronic kidney disease; I25.5 Ischemic cardiomyopathy; Z91.19 Patient's noncompliance with other medical treatment and regimen; Z95.810 Presence of automatic (implantable) cardiac defibrillator; Z87.891 Personal history of nicotine dependence
CPT/HCPCS: 31500; 36415; 51701; 71010; 80048; 80053; 80069; 81003; 81015; 82330; 82553; 82803; 82805; 83605; 84484; 85007; 85025; 85027; 85610; 85730; 93005; 94002; 94003; 94640; 94760; 96365; 96366; 96374; 96375; A4216; C9113; G8978-GP-CJ; G8979-GP-CI; J0171; J1644; J1940; J1956; J2250; J2920; J3010; J7506; J7620